=== PATIENT | female | born 1985 | race American Indian/Alaskan Native ===

== ENCOUNTER 2017-05-28 00:07 | Inpatient (IN) | payer MEDICAID, OTHER ==
[~2017-05-28 00:07] MED LIST: Acetaminophen 325 MG Tab PO PRN; Carboprost Tromethamine 250 MCG/1 ML Amp IM PRN; Lactated Ringers 500 ML IV ONE; Lidocaine 1% 30 ML SDV INJECT PRN; Methylergonovine 0.2 MG/1 ML Amp IM PRN; Misoprostol 25 MCG (1/4 of 100 MCG) Tab VAG PRN; Misoprostol 400 MCG (4 X 100 MCG TAB) RECTAL PRN; Nalbuphine 10 MG/1 ML Vial IM PRN; Ondansetron 4 MG/2 ML SDV IV PRN; Oxytocin/Normal Saline 30 UNIT/500 ML BAG IV SCH; Sodium Chloride 0.9% 10 ML Syringe FLUSH PRN; Zolpidem 5 MG Tab PO PRN
[2017-05-28] MEDS: Lactated Ringers 1,000 ML IV SCH ×4 (00:58→19:57)
[2017-05-28] MEDS ORDERED: Oxytocin/Normal Saline 30 UNIT/500 ML BAG IV SCH (08:15)
[2017-05-28] MEDS ORDERED: fentaNYL 100 MCG/2 ML SDV ONE (12:15)
--- NOTE | 2017-05-28 12:38 | PCM.PREANE ---
Preanesthetic Assessment - Procedure Proposed Procedure: Term labor requiring intrathecal for labor pain - Anesthesia/Transfusion/Family Hx Anesthesia History: Prior Anesthesia Without Reaction Type of Anesthesia Reaction: Unknown Family History of Anesthesia Reaction: No Transfusion History: No Prior Transfusion(s) Intubation History: Unknown - Review of Systems General: No Symptoms Pulmonary: No Symptoms Cardiovascular: No Symptoms Gastrointestinal: No Symptoms Neurological: No Symptoms Other: Reports: None - Physical Assessment NPO Status Date: 05/28/17 NPO Status Time: 12:00 Pulse: 93 O2 Sat by Pulse Oximetry: 99 Respiratory Rate: 18 Blood Pressure: 138/72 Vital Signs: Last Vital Signs Temp 97.1 F 05/28/17 08:45 Pulse 67 05/28/17 11:00 Resp 18 05/28/17 11:00 BP 127/63 05/28/17 11:00 Pulse Ox Height: 1.7 m Weight: 117.027 kg ASA Class: 2 Mental Status: Alert & Oriented x3 Airway Class: Mallampati = 2 Dentition: Reports: Normal Dentition Thyro-Mental Finger Breadths: 3 Mouth Opening Finger Breadths: 3 ROM/Head Extension: Full Lungs: Clear to Auscultation, Normal Respiratory Effort Cardiovascular: Regular Rate, Regular Rhythm - Lab Values: Laboratory Last Values Urine Opiates Screen Negative (NEGATIVE) 05/28/17 00:20 Ur Oxycodone Screen Negative (NEGATIVE) 05/28/17 00:20 Urine Methadone Screen Negative (NEGATIVE) 05/28/17 00:20 Ur Barbiturates Screen Negative (NEGATIVE) 05/28/17 00:20 U Tricyclic Antidepress Negative (NEGATIVE) 05/28/17 00:20 Ur Phencyclidine Scrn Negative (NEGATIVE) 05/28/17 00:20 Ur Amphetamine Screen Negative (NEGATIVE) 05/28/17 00:20 U Methamphetamines Scrn Negative (NEGATIVE) 05/28/17 00:20 Urine MDMA Screen Negative (NEGATIVE) 05/28/17 00:20 U Benzodiazepines Scrn Negative (NEGATIVE) 05/28/17 00:20 Urine Cocaine Screen Negative (NEGATIVE) 05/28/17 00:20 U Marijuana (THC) Screen Negative (NEGATIVE) 05/28/17 00:20 - Allergies Allergies/Adverse Reactions: Allergies Allergy/AdvReac Type Severity Reaction Status Date / Time amoxicillin Allergy Hives Verified 05/28/17 00:30 Penicillins Allergy Hives Verified 05/28/17 00:30 - Blood Blood Available: No Product(s) Available: None - Anesthesia Plan Pre-Op Medication Ordered: None - Acknowledgements Anesthesia Type Planned: Spinal Pt an Appropriate Candidate for the Planned Anesthesia: Yes Alternatives and Risks of Anesthesia Discussed w Pt/Guardian: Yes Pt/Guardian Understands and Agrees with Anesthesia Plan: Yes PreAnesthesia Questionnaire Cardiovascular History: Reports: Blood Clots/VTE/DVT Other Cardiovascular History: To left hip following first delivery in 2001 Respiratory History: Reports: Asthma Gastrointestinal History: Reports: Cholelithiasis, Other (See Below) Other Gastrointestinal History: increased LFT's Genitourinary History: Reports: UTI, Recurrent KETTLE GIRL History: Reports: , Other (See Below) Other OB/BYN History: hx yeast infection, bv Psychiatric History: Reports: Depression Hematologic History: Reports: Anemia, Other (See Below) Other Hematologic History: + hep c - Infectious Disease History Infectious Disease History: Reports: Chicken Pox - Past Surgical History Cardiovascular Surgical History: Reports: None GI Surgical History: Reports: None Female Surgical History: Reports: None - SUBSTANCE USE Smoking Status *Q: Former Smoker Tobacco Use Within Last Twelve Months: Cigarettes Second Hand Smoke Exposure: No Recreational Drug Use History: No - HOME MEDS Home Medications: Home Meds Albuterol [Proventil HFA] 2 puff INH Q4H PRN 07/26/16 [History] Albuterol/Ipratropium [DuoNeb 3.0-0.5 MG/3 ML] 3 ml NEB Q2H PRN #0 neb 07/29/16 [Rx] Ferrous Sulfate [Iron] 1 tab PO DAILY 05/26/17 [History] PNV95/Ferrous Fumarate/FA [ Tablet] 1 tab PO DAILY 05/26/17 [History] - CURRENT (IN HOUSE) MEDS Current Meds: Current Medications Acetaminophen (Tylenol) 650 mg PO Q4H PRN PRN Reason: Pain (Mild 1-3) and fever Acetaminophen (Tylenol) 650 mg PO Q4H PRN PRN Reason: Pain/Fever Carboprost Tromethamine (Hemabate Ds) 250 mcg IM ASDIRECTED PRN PRN Reason: HEMORRHAGE Lactated Ringer's (Ringers, Lactated) 1,000 mls @ 125 mls/hr IV ASDIRECTED EZRA Last Admin: 05/28/17 05:29 Dose: 125 mls/hr Oxytocin/Sodium Chloride (Pitocin In Ns 30 Unit/500 Ml) 30 unit in 500 mls @ 2 mls/hr IV TITRATE EZRA; 2 MUNITS/MIN PRN Reason: Protocol Oxytocin/Sodium Chloride (Pitocin In Ns 30 Unit/500 Ml) 30 unit in 500 mls @ 2 mls/hr IV TITRATE EZRA; 2 MUNITS/MIN PRN Reason: Protocol Last Titration: 05/28/17 09:53 Dose: 6 munits/min, 6 mls/hr Vancomycin HCl 1 gm/ Sodium (Chloride) 250 mls @ 166.7 mls/hr IV Q12H EZRA Lidocaine HCl (Xylocaine-Mpf 1%) 10 ml INJECT ASDIRECTED PRN PRN Reason: Perineal Repair Methylergonovine Maleate (Methergine) 0.2 mg IM ASDIRECTED PRN PRN Reason: Hemorrhage Misoprostol (Cytotec) 800 mcg RECTAL ASDIRECTED PRN PRN Reason: Hemorrhage Misoprostol (Cytotec) 25 mcg VAG Q4H PRN PRN Reason: cervical ripening Stop: 05/29/17 04:02 Last Admin: 05/28/17 01:54 Dose: 25 mcg Nalbuphine HCl (Nubain) 20 mg IM ONETIME PRN PRN Reason: Abdominal Pain Ondansetron HCl (Zofran) 4 mg IV Q4H PRN PRN Reason: Nausea/Vomiting Sodium Chloride (Saline Flush) 10 ml FLUSH ASDIRECTED PRN PRN Reason: Keep Vein Open Zolpidem Tartrate (Ambien) 5 mg PO BEDTIME PRN PRN Reason: Insomnia Stop: 05/28/17 21:01 Discontinued Medications Fentanyl (Sublimaze) Confirm Administered Dose 100 mcg .ROUTE .STK-MED ONE Stop: 05/28/17 12:16 Lactated Ringer's (Ringers, Lactated) 500 mls @ 999 mls/hr IV .BOLUS ONE Stop: 05/28/17 00:31 Vancomycin HCl 1 gm/ Sodium (Chloride) 250 mls @ 166.7 mls/hr IV Q12HR EZRA Last Admin: 05/28/17 11:06 Dose: Not Given Sufentanil Citrate (Sufenta) Confirm Administered Dose 50 mcg .ROUTE .STK-MED ONE Stop: 05/28/17 12:17
--- NOTE | 2017-05-28 12:44 | PCM.PRNOTE ---
- Free Text/Narrative Note: Patient Id'd, chart reviewed, consent is signed after R/B benefit of Intrathecal narcotic is discussed with patient and agreed to. In sitting position, L3-4 inner space ID's, sterile prep with Betadine and draped. Skin wheel with 1% lidocaine, 24 G Pencan spinal needle advanced into SA space negative Blood/parasthesia positive CSF X2. 6 mg Hyperbaric Marcaine, 30 mcg sufentanyl, 30 mcg fentanyl, epinepherine wash and 1 ml of preservative free normal saline injected into SA space. Level bilateral T10. Immediate pain relief is achieved. BP 136/75, HR 82, RR 18 SpO2 99 on RA.
--- NOTE | 2017-05-28 14:14 | PN ---
DATE: 05/28/2017 SUBJECTIVE: A 31-year-old, G5, P4-0-0-4 at 39 and 3/7 weeks' gestation, here for induction of labor because of history of macrosomia and multiple other high- risk factors, measuring large for gestational age on clinical exam at this time as well. OBJECTIVE: Vital Signs: Have been good. Blood pressure is 138/73, pulse of 68. She is afebrile. Pitocin has been running, and she also now has an intrathecal in place as her contractions were getting quite strong, and she was starting to breathe through them. As a multiparous patient, we expect that she will progress quickly through labor as her previous labors have only been about 3-1/2 to 4 hours total, and the baby's monitoring strip has been looking excellent with a baseline heart rate of 125 beats per minute, moderate [id number]-gm-kavt variability. Accelerations noted. Contractions currently about 2 to 2-1/2 minutes. Cervix is 3 cm dilated, 80% effaced, anterior but very high. Artificial rupture of membranes performed with copious amounts of clear fluid returned, vertex presenting. ASSESSMENT: Unchanged from prior, now status post ruptured membranes with intrathecal in place. PLAN: Continue pushing the Pitocin as able. Continue with vancomycin. If she is not making adequate cervical change, nurse will notify me, and I will return to place an IUPC. Due to her group B strep positive and hepatitis C history; however, we were trying to limit intracervical and vaginal procedures. [facility] /[id number] DEVORAH
[2017-05-28] MEDS ORDERED: fentaNYL 100 MCG/2 ML SDV ITHECAL ONE (14:27)
[2017-05-28] MEDS ORDERED: Gentamicin 500 MG in Sodium Chloride 0.9% 100 ML IV ONE (19:57)
[2017-05-28] MEDS ORDERED: Citric Acid/Sodium Citrate Solution 30 ML Cup PO ONE (19:57)
[2017-05-28] MEDS ORDERED: Oxytocin/Normal Saline 60 UNIT/1,000 ML BAG ONE (20:06)
[2017-05-28] MEDS ORDERED: Morphine PF 1 MG/ML Amp ONE (20:11)
[2017-05-28] MEDS ORDERED: Midazolam 1 MG/ML 2 ML SDV ONE (20:11)
[2017-05-28] MEDS ORDERED: Ondansetron 4 MG/2 ML SDV ONE ×2 (20:11→21:45)
[2017-05-28] MEDS ORDERED: ePHEDrine 50 MG/ML SDV ONE (20:12)
--- NOTE | 2017-05-28 20:35 | PN ---
DATE: 05/28/2017 SUBJECTIVE: A 31-year-old female, currently at 39 and 3/7 weeks gestation, 5, para 4-0-0-4, with a history of prior macrosomic and feels this baby is larger than any of her priors, was brought in at midnight for induction using Cytotec eventually followed by Pitocin and artificial rupture of membranes. IUPC was also used for labor management and for 4 hours, she has had MVUs of greater than 200 and has not made any cervical dilatation or progression. Baby remains fairly high in the pelvis. Cervix is very anterior and essentially just not engaging. We have tried different position changes. She did have an intrathecal earlier and that did not help with relaxation or further dilatation either. She has a history of abnormal quad screening, increased risk of Down syndrome. Otherwise, no specific risk factors for a larger baby. Discussed with her boyfriend and her brother in the room my suspicion that this baby is very large and this is why we have arrest of dilatation despite her history of fairly fast labors usually under 4 hours and with only 20 to 30 minutes of pushing. After discussion, she was agreeable to proceed with section and agreed that continued efforts for vaginal delivery are essentially futile. OBJECTIVE: Vital Signs: Have been stable. Blood pressure is 124/72, pulse is 67. She is afebrile, respiratory rate of 16. Cervical exam performed per the nurse who had checked her 1 hour previous, reports no further progress. She has arrested at 5 cm dilated, 75% effaced, remains anterior. No significant caput is forming and baby is higher than what we would like to palpate. Fundal height rechecked as 43 cm when measuring from the symphysis pubis despite having at least 500 of clear amniotic fluid out so far. ASSESSMENT: 1. A 39 and 3/7 weeks intrauterine . 2. Arrest of labor at 5 cm of dilatation despite adequate MVUs for 4 hours. 3. 5, para 4-0-0-4. 4. History of macrosomic infant suspect same as reason for rest. 5. History of abnormal quad screen with increased risk of Down syndrome. No followup performed. 6. Hepatitis C positive. 7. Group B strep positive, currently on vancomycin. 8. Rubella immune. 9. Blood type O positive. 10.Penicillin allergy. 11.Anemia of . 12.History of cholelithiasis. 13.Asthma. 14.History of deep venous thrombosis with her first . PLAN: Discussed proceeding to and she is agreeable. Reviewed risk of infection and plan for preoperative antibiotics, risk of bleeding to the point of requiring a blood transfusion; risk of injury to any internal organs and adjacent structures including, but not limited to, uterus, fallopian tubes, ovaries, ureters, bladder, intestines, muscles, large blood vessels, nerves, veins, and any other adjacent structures. The patient was advised that I will have a surgical rn who would be able to correct many of these injuries if they were to occur; however, there is still potential for complications for her or the baby that would require transfer of 1 or both of them to a facility with a higher level of care. Also, remote risk of . She agreed to proceed and we signed appropriate consent forms. Once the team is assembled, we will proceed with a non urgent, nonelective primary low transverse section. [facility] /[id number] MTDD
[2017-05-28] MEDS ORDERED: Carboprost Tromethamine 250 MCG/1 ML Amp ONE (20:55)
[2017-05-28] MEDS ORDERED: Misoprostol 400 MCG (4 X 100 MCG TAB) ONE (20:55)
[2017-05-28] MEDS ORDERED: Ketorolac 30 MG/ML SDV ONE (21:45)
[2017-05-28] MEDS ORDERED: Promethazine 25 MG/ML SDV ONE (21:45)
[2017-05-28] MEDS ORDERED: Acetaminophen/oxyCODONE 325-5 MG Tab PO PRN (23:14)
[2017-05-28] MEDS ORDERED: Naloxone 2 MG/2 ML Syringe IVPUSH PRN (23:14)
[2017-05-28] MEDS ORDERED: Ondansetron 4 MG/2 ML SDV IV PRN (23:14)
[2017-05-28] MEDS ORDERED: ePHEDrine 50 MG/ML SDV IVPUSH PRN (23:14)
[2017-05-28] MEDS ORDERED: Ibuprofen 800 MG Tab PO PRN (23:14)
[2017-05-28] MEDS ORDERED: Methylergonovine 0.2 MG/1 ML Amp IM PRN (23:14)
[2017-05-28] MEDS ORDERED: Misoprostol 400 MCG (4 X 100 MCG TAB) RECTAL PRN (23:14)
[2017-05-28] MEDS ORDERED: diphenhydrAMINE 50 MG/ML SDV IVPUSH PRN (23:14)
[2017-05-28] MEDS ORDERED: Carboprost Tromethamine 250 MCG/1 ML Amp IM ONE (23:14)
[2017-05-28] MEDS ORDERED: Acetaminophen 325 MG Tab PO PRN (23:14)
--- NOTE | 2017-05-29 01:23 | OR ---
DATE: 05/28/2017 ATTENDING SURGEON: Jeannie Medellin MD POWERHOUSE ATTENDANT SURGEONS: 1. Mt Maher MD, PGY-III. 2. Kathy García MD. PREOPERATIVE DIAGNOSES: 1. 5, para 4-0-0-4 at 39 weeks 3 days gestation. 2. History of macrosomia. 3. Abnormal quad screen. 4. History of insufficient care. 5. History of bacterial vaginosis, urinary tract infection, and yeast infection all and during . 6. Hepatitis C virus positive. 7. O positive, rubella immune, and group B Streptococcus positive, being treated with vancomycin. 8. Penicillin allergy. 9. Anemia. 10.Cholelithiasis. 11.History of asthma. 12.History of deep venous thrombosis. 13.Arrest of labor. POSTOPERATIVE DIAGNOSES: 1. 5, para 5-0-0-5 at 39 weeks 3 days gestation. 2. History of macrosomia. 3. Abnormal quad screen. 4. History of insufficient care. 5. History of bacterial vaginosis, urinary tract infection, and yeast infection all and during . 6. Hepatitis C virus positive. 7. O positive, rubella immune, and group B Streptococcus positive, being treated with vancomycin. 8. Penicillin allergy. 9. Anemia. 10.Cholelithiasis. 11.History of asthma. 12.History of deep venous thrombosis. 13.Arrest of labor. 14.Delivery of viable female infant with scores of 8 and 9 at 1 and 5 minutes respectively. OPERATIVE PROCEDURE: Primary nonelective, non-repeat low transverse section. ESTIMATED BLOOD LOSS: 600 mL. URINE OUTPUT: 450 mL. IV FLUIDS: 1300 mL in the OR. FINDINGS: Nonemergent primary, non-repeat low transverse section at 39 weeks 3 days with arrest of labor at 5 cm, with delivery of a female infant with scores of 8 and 9. Start time was 2053 hours; uterine time was 2101 hours; time was 2102 hours; and end time was 2127 hours. INDICATION FOR PROCEDURE: Tisha Cowan is a G5, P4-0-0-4, who presented for induction of labor due to history of macrosomia and insufficient care with a significant history as listed above and history of DVT, who had arrest of labor after 4 hours sufficient MVUs. She failed at 5 cm to progress over the course of 4 hours. Risks and benefits were discussed with the patient by Dr. Jimenez, and the patient wished to proceed with surgery at that time. PROCEDURE IN DETAIL: The patient was brought to the operating room, given spinal anesthetic, and placed supine with a bump under the right hip. A Mcmanus catheter was placed. She was prepped and draped in standard sterile fashion. A procedural time-out was performed, and all were in agreement. A Pfannenstiel incision was made with a scalpel, and electrocautery was used to dissect down through the subcutaneous tissue to the muscle fascia. The muscle fascia was scored and opened transversely with tilting cephalic towards the edges to avoid epigastric vessels. The fascia was raised superiorly and inferiorly down to the pubic bone. The rectus muscles were bluntly and entered into the peritoneum bluntly. The uterus was normal appearing. A bladder flap was created using Metzenbaum scissors. This was retracted out of the way. An Woody retractor was placed. A low transverse uterine incision was made sharply, and then bluntly entering into the uterine cavity, this was then opened bluntly. With the presenting lateral portion of the head towards the cervix, the was then delivered out, and the cord was doubly clamped and cut. There was some bleeding noted from the uterine edges and Penningtons were placed to avoid hemorrhage. The baby was taken to the warmer under the care of Dr. García. The placenta was delivered without issue. There was minimal retained placenta that was removed with ring forceps and debridement using a lap sponge. Fundal massage was created, and uterine tone was present. The uterus was closed with a #1 running locking Vicryl stitch. A horizontal imbricating stitch was then placed with a #1 Vicryl. There was no bleeding noticed, following the Woody retractor was removed. The paracolic gutters were without issues. 2-0 Vicryl [id number] stitches were used to reapproximate the peritoneum. The fascia was closed with 2-0 looped PDS running starting from the edges meeting in the middle and tying. Subcutaneous tissues were irrigated thoroughly. Hemostasis was reassured. Skin was staple closed, and sterile dressings were placed. The patient was then transferred to PACU in stable condition. Dr. Jeannie Medellin was present and scrubbed for this entire procedure. [facility] /[id number] Procedure performed under my direct supervision and I agree with the note as scribed on my behalf by Dr. Figueroa. -[facility] 06/21/17 0934. MTDD
[2017-05-29] MEDS: Lactated Ringers 1,000 ML IV SCH ×2 (01:48→09:44)
[2017-05-29] MEDS: Ketorolac 30 MG/ML SDV IVPUSH SCH ×3 (04:10→15:57)
[2017-05-29] MEDS: Enoxaparin 40 MG/0.4 ML Syringe SUBCUT SCH (09:07)
[2017-05-29] MEDS: Simethicone 80 MG Tab.Chew PO PRN ×2 (09:07→20:40)
[2017-05-29] MEDS: Docusate Sodium 100 MG Cap PO PRN ×2 (09:08→20:39)
--- NOTE | 2017-05-29 10:06 | PN ---
DATE: 05/29/2017 SUBJECTIVE: Postoperative day #1, overall doing well. She has not been up to ambulate yet. Continues to have Mcmanus catheter in place. Reports that she feels a little bit of tightness sensation in her chest. No other chest discomfort or pain. Denies specific difficulty breathing. Abdominal pain is well controlled. Generally concerned about how things are going to go postoperatively. Reports is going well. No other acute concerns. OBJECTIVE: General: A pleasant healthy-appearing 31-year-old female. Vital Signs: Temperature is 98.2, pulse 72, blood pressure 120/61, respiratory rate of 16, O2 saturations 97% on room air. Heart: Regular without obvious murmur. Lungs: Clear to auscultation bilaterally. Abdomen: Soft without masses. Uterus is firm and below the umbilicus. Dressing is clean, dry, and intact. Extremities: SCDs and SAIDA hose are on. No obvious edema. No tenderness to palpation. LABORATORY DATA: Hemoglobin is down to 10.3 from a previous 12.2 and platelets are stable at 221. ASSESSMENT: 1. Postoperative day #1, status post primary low transverse section. 2. 5, now para 5-0-0-5. 3. Anemia of and acute blood loss. 4. Hepatitis C positive. Current viral load and genotype pending. 5. Blood type O positive. Rubella immune. 6. Penicillin allergy. PLAN: Continue routine postoperative cares. Anticipate discharge home on postop day #3. Discussed getting a shower after 24 hours postop once she is up and ambulating. Remove Mcmanus catheter later on this evening. Lovenox has been initiated and we will continue until discharge because of her history of left hip DVT. [facility] /[id number]
--- NOTE | 2017-05-29 10:42 | PCM.POSTAN ---
[id number] Pulse Rate: 72 SaO2: 99 Resp Rate: 18 Blood Pressure: 132/72 Temperature: 97.6 F - RESPIRATORY Respiratory Status: Respiratory Rate WNL, Airway Patent, O2 Saturation Stable - CARDIOVASCULAR CV Status: Pulse Rate WNL, Blood Pressure Stable - GASTROINTESTINAL GI Status: No Symptoms Free Text/Narrative:: Had couple of nausea events post operatively. This morning she tolerated food and fluid well. No further complains of nausea - PAIN Pain Score: 0 - POST OP HYDRATION Hydration Status: Adequate & Stable - OBSERVATIONS Free Text/Narrative:: Sitting in bed fully recovered from her ITN. Did not ambulate yet. Tolerated breakfast well. Pleased with her anesthesia plan of care.
[2017-05-29] MEDS: Prenatal Multivitamin with Calcium/Folic Acid/Iron Tab PO SCH (12:33)
[2017-05-29] MEDS ORDERED: Ketorolac 30 MG/ML SDV IVPUSH ONE (12:39)
[2017-05-29] MEDS ORDERED: Ondansetron 4 MG/2 ML SDV IV ONE (12:39)
[2017-05-29] MEDS ORDERED: Morphine PF 1 MG/ML Amp ONE (12:39)
[2017-05-29] MEDS ORDERED: Promethazine 25 MG/ML SDV IV ONE (12:39)
[2017-05-29] MEDS ORDERED: Midazolam 1 MG/ML 2 ML SDV IV ONE (12:39)
[2017-05-29] MEDS ORDERED: ePHEDrine 50 MG/ML SDV IV ONE (12:39)
[2017-05-29] MEDS ORDERED: Albuterol 0.083% 2.5 MG/3 ML Neb Soln NEB PRN (20:07)
[2017-05-29] MEDS: Albuterol/Ipratropium 3.0-0.5 MG/3 ML Neb Soln NEB SCH (20:24)
[2017-05-29] MEDS: Acetaminophen/oxyCODONE 325-5 MG Tab PO PRN (20:40)
[2017-05-29] MEDS: Ibuprofen 800 MG Tab PO PRN (23:57)
[2017-05-30] MEDS: Acetaminophen/oxyCODONE 325-5 MG Tab PO PRN ×5 (03:17→21:20)
[2017-05-30] MEDS ORDERED: Oxytocin/Normal Saline 30 UNIT/500 ML BAG IV ONE (06:29)
--- NOTE | 2017-05-30 07:27 | PN ---
DATE: 05/30/2017 SUBJECTIVE: Postoperative day #2, status post primary section for asynclitic presentation. She is a 5, now para 5-0-0-5. Reports that she has been ambulating without difficulties. Mcmanus catheter has remained in place, passing flatus, has not yet had a bowel movement, tolerating regular diet. Denies any chest pain or typical shortness of breath. She has had some exacerbation of her asthma last night, which responded well to DuoNeb, and she has not needed any p.r.n. albuterol nebulizers. Denies any breathing difficulties this morning. Vaginal bleeding has slowed significantly. She continues to breastfeed and feels that her milk has come in. Otherwise, no new concerns or complaints. PHYSICAL EXAMINATION: VITAL SIGNS: Temperature is 97.2 pulse 67, blood pressure 118/67, respiratory rate of 18, and O2 saturations 97% on room air. HEART: Regular without obvious murmur. LUNGS: Clear to auscultation at this time. Last night nurse reported wheezing in the left lung field. ABDOMEN: Soft. Fundus is firm and below the umbilicus. Dressing is in place. It is clean, dry, and intact. No obvious strike through. EXTREMITIES: No edema or tenderness noted. She does have her SAIDA hose on and reports she is ambulating frequently. LABORATORY DATA: Hemoglobin was down to 10.3 from a preop of 12.2, was not reordered to be rechecked today. ASSESSMENT: 1. Postoperative day #2, status post primary section. 2. History of deep venous thrombosis in the left hip with her first . 3. 5, now para 5-0-0-5. 4. False positive antibody screen for hepatitis C. 5. Other diagnoses per admission history and physical and postoperative and operative report. PLAN: Continue routine postoperative cares. Anticipate discharge home tomorrow. Remove the SCDs today. Continue Lovenox through discharge, but she does not need to go home on it. Continue to encourage frequent ambulation. Pinole to be removed in 10 days after discharge when she brings the baby in for the 2-week well-child visit. Dr. Rubi will cover over the weekend in my absence. [facility] /[id number]
[2017-05-30] MEDS: Albuterol/Ipratropium 3.0-0.5 MG/3 ML Neb Soln NEB SCH ×2 (09:07→18:17)
[2017-05-30] MEDS: Enoxaparin 40 MG/0.4 ML Syringe SUBCUT SCH (09:31)
[2017-05-30] MEDS: Ferrous Sulfate 325 MG Tab PO SCH ×2 (09:31→17:08)
[2017-05-30] MEDS: Prenatal Multivitamin with Calcium/Folic Acid/Iron Tab PO SCH (09:31)
[2017-05-30] MEDS: Ibuprofen 800 MG Tab PO PRN ×2 (09:32→17:08)
[2017-05-30] MEDS: Docusate Sodium 100 MG Cap PO PRN ×2 (09:32→21:20)
[2017-05-30] MEDS: Simethicone 80 MG Tab.Chew PO PRN ×2 (09:32→21:18)
[2017-05-31] MEDS: Ibuprofen 800 MG Tab PO PRN (01:31)
[2017-05-31] MEDS: Acetaminophen/oxyCODONE 325-5 MG Tab PO PRN ×3 (01:32→10:50)
[2017-05-31] MEDS: Ferrous Sulfate 325 MG Tab PO SCH (07:12)
[2017-05-31] MEDS: Prenatal Multivitamin with Calcium/Folic Acid/Iron Tab PO SCH (07:12)
[2017-05-31] MEDS: Albuterol/Ipratropium 3.0-0.5 MG/3 ML Neb Soln NEB SCH (07:12)
[2017-05-31 07:35] VITALS: BP 123/80
[2017-05-31] MEDS: Enoxaparin 40 MG/0.4 ML Syringe SUBCUT SCH (09:40)
[2017-05-31] MEDS: Docusate Sodium 100 MG Cap PO PRN (09:41)
--- NOTE | 2017-06-01 14:14 | DISCH ---
HISTORY OF PRESENT ILLNESS: This patient is a 31-year-old 5, now para 5 patient, who has been followed by myself as well as by Dr. Jimenez during this . Prenatally, some of her care was somewhat sparse at times. One of her SARIAH is based on an earlier ultrasound and her LMP from [place] gives her an SARIAH of June 03. The patient was felt to be at 39 weeks 3 days gestation. During this course, her initial rubella titer was equivocal, but repeat testing intrapartum and revealed her to be immune to rubella. She also did have a positive quad screen prenatally, but she never did keep her appointment with the maternal medicine specialist in [place] for further evaluation. She also initially had a high titer of hepatitis C reported. Followup testing by Dr. Jimenez, which consisted of the quantitative testing and genotype testing, revealed undetectable antibody. She also has had iron-deficiency anemia with this and was on oral iron. She does have a history of asthma, which most of the time has been stable, but more recently, she did have a slight increase in her wheezing. She also has past history of having had a macrosomic 9 pounds 8 ounce baby delivered vaginally in 2001. The patient has recently been measuring 41 cm fundal height, and there has been concern for possible macrosomia again. HOSPITAL COURSE: The patient was thoroughly evaluated by Dr. Jimenez and induction of labor was commenced on May 28 when the patient was at 39 weeks 3 days gestation. Cytotec was utilized initially and then IV Pitocin was later used as well as artificial rupture of membranes. The patient did have an arrest of labor or failure to progress in labor. Please see the dictated admission history and physical as well as dictated operative report of Dr. Jimenez. It should be mentioned that this patient also had a history of a left hip DVT in about 2001 and the patient did have Lovenox given while she was hospitalized and then it was discontinued at discharge. Because of her arrest of labor or failure to progress in labor, the patient was taken to the operating room for a primary section, low transverse. She did have a viable baby girl, who had scores of 8 and 9 and the weight was reported as 7 pounds 7 ounces. There were no intraoperative nor postoperative complications. The baby has continued to do well in the period as well. The patient is breast feeding and breast feeding is well established. The patient has been ambulating appropriately and tolerating diet and having no bowel or bladder problems. I did see the patient on rounds on Friday morning 05/31/2017. The patient remains afebrile at that time. Her extremities reveal 1+ ankle and calf edema, and the patient states that this has been stable for her. There is negative Homans sign and no calf tenderness to palpation. As mentioned above, the patient has been ambulating appropriately. The patient is discharged on 05/31/2017. She will avoid any heavy lifting, sexual intercourse, or strenuous physical activity for approximately 6 weeks. She does have a followup appointment to see Dr. Jimenez in approximately 10 to 14 days and the baby I understand will be seen. Dr. Jimenez is coming week in the clinic. The patient's diet is regular. Her discharge hemoglobin is 10.3. DISCHARGE MEDICATIONS: Consist of Percocet 5/325 mg one p.o. q.6 hours p.r.n. #30, prescribed by Dr. Jimenez. Also, the patient was given a prescription for Colace, ibuprofen, vitamins, and oral iron. OTHER INSTRUCTIONS: The patient was instructed to please call us at once if any fever, excessive bleeding, excess pain, including any pelvic pain, vaginal pain, extremity pain, or chest pain etc. She was also instructed to do progressive ambulation at home. FINAL DIAGNOSES: 1. Term delivered. 2. Past history of macrosomia. 3. Abnormal quad screen prenatally with normal delivered. 4. Group B strep positive, treated with vancomycin. 5. Anemia of . 6. Asthma. 7. History of previous deep venous thrombosis. 8. Arrest of labor or failure to progress in labor. OPERATIONS AND PROCEDURES: Primary section, low transverse on 05/28/2017. It should be mentioned that the hepatitis C virus quantitative testing and genotype testing does not reveal any detectable antibody for hepatitis C at present. [facility] /[id number]
== END 2017-05-31 12:00 | disposition still patient (30) | DRG 765 ==
LOC: DL.OBCHECK 00:07 → DL.OB 00:10 → OBSVTOIN 21:02 → EEVIPCON 21:02
PROVIDERS: ADMIT Family Medicine; ATTEND Family Medicine
PROC: 10D00Z1 Extraction of Products of Conception, Low, Open Approach (ICD-10-PCS; principal; 2017-05-28)
PROC: 10907ZC Drainage of Amniotic Fluid, Therapeutic from Products of Conception, Via Natural or Artificial Opening (ICD-10-PCS; 2017-05-28)
PROC: 3E033VJ Introduction of Other Hormone into Peripheral Vein, Percutaneous Approach (ICD-10-PCS; 2017-05-28)
PROC: 3E0P7GC Introduction of Other Therapeutic Substance into Female Reproductive, Via Natural or Artificial Opening (ICD-10-PCS; 2017-05-28)
PROC: 4A1HXCZ Monitoring of Products of Conception, Cardiac Rate, External Approach (ICD-10-PCS; 2017-05-28)
PROC: 10H07YZ Insertion of Other Device into Products of Conception, Via Natural or Artificial Opening (ICD-10-PCS; 2017-05-28)
DX: O61.0 Failed medical induction of labor (principal); J45.901 Unspecified asthma with (acute) exacerbation; O62.1 Secondary uterine inertia; O99.02 Anemia complicating childbirth; O99.824 Streptococcus B carrier state complicating childbirth; D50.9 Iron deficiency anemia, unspecified; O99.52 Diseases of the respiratory system complicating childbirth; Z3A.39 39 weeks gestation of pregnancy; Z86.718 Personal history of other venous thrombosis and embolism; Z37.0 Single live birth
CPT/HCPCS: 01961; 01967; 36415; 80305; 85025; 85027; 86850; 86900; 86901; 94010; 94640; A9270-GY; J1580; J1650; J1885; J2250; J2274; J2405; J2550; J2590; J3010; J3370; J7050; J7120

== ENCOUNTER 2017-06-05 11:45 | Emergency (ER) | payer MEDICAID, OTHER ==
--- NOTE | 2017-06-05 12:09 | EDM.PDOC ---
ED HPI GENERAL MEDICAL PROBLEM - General Stated Complaint: ABD PAIN/FEVER Time Seen by Provider: 06/05/17 11:45 Source of Information: Reports: Patient, EMS, Provider History Limitations: Reports: No Limitations - History of Present Illness INITIAL COMMENTS - FREE TEXT/NARRATIVE: This 31 yo female patient was sent to the ED by [facility] from the [facility] due to lower abdominal pain and a fever. The provider in the clinic ordered Tylenol (PO) and an IV for the patient. The patient reports she has had increased lower abdominal pain over the past 2 days. The patient reports she has not called or set up an appointment with Dr. Jimenez. The patient reports she took her last Percocet last night. The patient had a on 05/28/17 at [facility] in [place]. The patient reports she has been doing well up to the past 2 days. The patient has also been having a cough. The patient reports no drainage or discharge from the site. The patient has been having a cough over the past couple of days. The patient reports her child is doing well. Onset: Gradual Onset Date: 06/03/17 Duration: Constant, Getting Worse Location: Reports: Chest, Abdomen Quality: Reports: Ache, Sharp Severity: Severe Improves with: Reports: Medication (Percocet) Worsens with: Reports: Movement Context: Reports: Other () Treatments ENTERPRISE ENGINEER: Reports: Acetaminophen (3x325 (PO) from [facility]) - Related Data Allergies Allergy/AdvReac Type Severity Reaction Status Date / Time amoxicillin Allergy Hives Verified 05/28/17 00:30 Penicillins Allergy Hives Verified 05/28/17 00:30 Home Meds: Home Meds Albuterol [Proventil HFA] 2 puff INH Q4H PRN 07/26/16 [History] Albuterol/Ipratropium [DuoNeb 3.0-0.5 MG/3 ML] 3 ml NEB Q2H PRN #0 neb 07/29/16 [Rx] Ferrous Sulfate [Iron] 1 tab PO DAILY 05/26/17 [History] PNV95/Ferrous Fumarate/FA [ Tablet] 1 tab PO DAILY 05/26/17 [History] Acetaminophen 3 tab PO ASDIRECTED PRN 06/05/17 [History] Past Medical History Cardiovascular History: Reports: Blood Clots/VTE/DVT Other Cardiovascular History: To left hip following first delivery in 2001 Respiratory History: Reports: Asthma Gastrointestinal History: Reports: Cholelithiasis, Other (See Below) Other Gastrointestinal History: increased LFT's Genitourinary History: Reports: UTI, Recurrent VISION MIXER History: Reports: , Other (See Below) Other OB/BYN History: hx yeast infection, bv Psychiatric History: Reports: Depression Hematologic History: Reports: Anemia, Other (See Below) Other Hematologic History: + hep c - Infectious Disease History Infectious Disease History: Reports: Chicken Pox - Past Surgical History Cardiovascular Surgical History: Reports: None GI Surgical History: Reports: None Female Surgical History: Reports: None Social & Family History - Family History Family Medical History: Noncontributory Respiratory: Reports: Asthma Endocrine/Metabolic: Reports: Diabetes, type II - Tobacco Use Smoking Status *Q: Former Smoker Years of Tobacco use: 2 Packs/Tins Daily: 0.3 Used Tobacco, but Quit: Yes Month Tobacco Last Used: 08/2016 Second Hand Smoke Exposure: No - Caffeine Use Caffeine Use: Reports: Coffee - Recreational Drug Use Recreational Drug Use: No - Sexual History Sexual History: Reports: Sexually Active - Living Situation & Occupation Living situation: Reports: with Family Occupation: Employed ED ROS GENERAL - Review of Systems Review Of Systems: ROS reveals no pertinent complaints other than HPI. ED EXAM, GI/ABD - Physical Exam Exam: See Below Exam Limited By: No Limitations General Appearance: Alert, WD/WN, Moderate Distress, Obese Eyes: Bilateral: Normal Appearance, EOMI Ears: Normal External Exam, Normal Canal, Hearing Grossly Normal, Normal TMs Nose: Normal Inspection, Normal Mucosa, No Blood Throat/Mouth: Normal Inspection, Normal Lips, Normal Teeth, Normal Gums, Normal Oropharynx, Normal Voice, No Airway Compromise Head: Atraumatic, Normocephalic Neck: Normal Inspection, Supple, Non-Tender, Full Range of Motion Respiratory/Chest: No Respiratory Distress, Normal Breath Sounds, No Accessory Muscle Use, Chest Non-Tender, Rhonchi Cardiovascular: Normal Peripheral Pulses, Regular Rate, Rhythm, No Edema, No Gallop, No JVD, No Murmur, No Rub GI/Abdominal Exam: Normal Bowel Sounds, Soft, No Organomegaly, No Distention, No Abnormal Bruit, No Mass, Pelvis Stable, Tender (lower abdomen (over surgical scar)), Other (obese) (Female) Exam: Deferred Rectal (Female) Exam: Deferred Back Exam: Normal Inspection Extremities: Normal Inspection, Normal Range of Motion, Non-Tender, Normal Capillary Refill, No Pedal Edema Neurological: Alert, Oriented, CN II-XII Intact, Normal Cognition, Normal Gait, Normal Reflexes, No Motor/Sensory Deficits Psychiatric: Normal Affect, Normal Mood Skin Exam: Dry, Intact, Normal Color, No Rash, Increased Warmth Lymphatic: No Adenopathy Course - Vital Signs Last Recorded V/S: Last Vital Signs Temp 37.7 C 06/05/17 11:47 Pulse 103 H 06/05/17 11:47 Resp 20 06/05/17 11:47 BP 125/58 L 06/05/17 11:47 Pulse Ox 95 06/05/17 11:47 - Orders/Labs/Meds Orders: Active Orders 24 hr Category Date Time Status Pelvis Non OB Ltd [US] Urgent Exams 06/05/17 15:14 Taken Transvaginal Non OB [US] Urgent Exams 06/05/17 15:14 Taken CULTURE BLOOD [BC] Stat Lab 06/05/17 12:09 Received CULTURE BLOOD [BC] Stat Lab 06/05/17 12:12 Received Blood Culture x2 Reflex Set [OM.PC] Stat Oth 06/05/17 11:56 Ordered Labs: Laboratory Tests 06/05/17 06/05/17 06/05/17 Range/Units 12:12 12:12 12:12 WBC 12.4 H (5.0-10.0) 10^3/uL RBC 4.60 (4.2-5.4) 10^6/uL Hgb 13.2 (12.0-16.0) g/dL Hct 39.4 (37.0-47.0) % MCV 85.7 (80-100) fL MCH 28.7 (27.0-34.0) pg MCHC 33.5 (33.0-35.0) g/dL Plt Count 382 (150-450) 10^3/uL Neut % (Auto) 86.3 H (42.2-75.2) % Lymph % (Auto) 5.6 L (20.5-50.1) % Luna % (Auto) 5.6 (2-8) % Eos % (Auto) 2.4 (1.0-3.0) % Baso % (Auto) 0.1 (0.0-1.0) % Add Manual Diff Yes Neutrophils % (Manual) 86 % Band Neutrophils % 1 % Lymphocytes % (Manual) 6 % Atypical Lymphs % 2 % Monocytes % (Manual) 3 % Eosinophils % (Manual) 2 % Sodium 138 (135-145) mmol/L Potassium 4.1 (3.6-5.0) mmol/L Chloride 104 (101-111) mmol/L Carbon Dioxide 21.0 (21.0-31.0) mmol/L Anion Gap 17.1 BUN 13 (7-18) mg/dL Creatinine 0.7 (0.6-1.3) mg/dL Est Cr Clr Drug Dosing 113.24 mL/min Estimated GFR (MDRD) > 60 BUN/Creatinine Ratio 18.57 Glucose 98 (74-105) mg/dL Lactic Acid 0.9 (0.5-2.2) mmol/L Calcium 9.2 (8.4-10.2) mg/dl Total Bilirubin 0.7 (0.2-1.0) mg/dL AST 31 (10-42) IU/L ALT 29 (10-60) IU/L Alkaline Phosphatase 92 (42-121) IU/L Total Protein 7.7 (6.7-8.2) g/dl Albumin 3.5 (3.2-5.5) g/dl Globulin 4.2 Albumin/Globulin Ratio 0.83 Amylase 36 (28-100) U/L Lipase 10 L (22-51) U/L Urine Color (YELLOW) Urine Appearance (CLEAR) Urine pH (5.0-9.0) Ur Specific [place] (1.005-1.030) Urine Protein (NEGATIVE) Urine Glucose (UA) (NEGATIVE) Urine Ketones (NEGATIVE) Urine Occult Blood (NEGATIVE) Urine Nitrite (NEGATIVE) Urine Bilirubin (NEGATIVE) Urine Urobilinogen (0.2-1.0) mg/dL Ur Leukocyte Esterase (NEGATIVE) Urine RBC /HPF Urine WBC (0-5/HPF) /HPF Ur Epithelial Cells /HPF Amorphous Sediment (0/HPF) /HPF Urine Bacteria (0-FEW/HPF) /HPF Urine Mucus /LPF Urine Opiates Screen (NEGATIVE) Ur Oxycodone Screen (NEGATIVE) Urine Methadone Screen (NEGATIVE) Ur Barbiturates Screen (NEGATIVE) U Tricyclic Antidepress (NEGATIVE) Ur Phencyclidine Scrn (NEGATIVE) Ur Amphetamine Screen (NEGATIVE) U Methamphetamines Scrn (NEGATIVE) Urine MDMA Screen (NEGATIVE) U Benzodiazepines Scrn (NEGATIVE) Urine Cocaine Screen (NEGATIVE) U Marijuana (THC) Screen (NEGATIVE) 06/05/17 06/05/17 Range/Units 12:25 12:25 WBC (5.0-10.0) 10^3/uL RBC (4.2-5.4) 10^6/uL Hgb (12.0-16.0) g/dL Hct (37.0-47.0) % MCV (80-100) fL MCH (27.0-34.0) pg MCHC (33.0-35.0) g/dL Plt Count (150-450) 10^3/uL Neut % (Auto) (42.2-75.2) % Lymph % (Auto) (20.5-50.1) % Luna % (Auto) (2-8) % Eos % (Auto) (1.0-3.0) % Baso % (Auto) (0.0-1.0) % Add Manual Diff Neutrophils % (Manual) % Band Neutrophils % % Lymphocytes % (Manual) % Atypical Lymphs % % Monocytes % (Manual) % Eosinophils % (Manual) % Sodium (135-145) mmol/L Potassium (3.6-5.0) mmol/L Chloride (101-111) mmol/L Carbon Dioxide (21.0-31.0) mmol/L Anion Gap BUN (7-18) mg/dL Creatinine (0.6-1.3) mg/dL Est Cr Clr Drug Dosing mL/min Estimated GFR (MDRD) BUN/Creatinine Ratio Glucose (74-105) mg/dL Lactic Acid (0.5-2.2) mmol/L Calcium (8.4-10.2) mg/dl Total Bilirubin (0.2-1.0) mg/dL AST (10-42) IU/L ALT (10-60) IU/L Alkaline Phosphatase (42-121) IU/L Total Protein (6.7-8.2) g/dl Albumin (3.2-5.5) g/dl Globulin Albumin/Globulin Ratio Amylase (28-100) U/L Lipase (22-51) U/L Urine Color Yellow (YELLOW) Urine Appearance Clear (CLEAR) Urine pH 7.0 (5.0-9.0) Ur Specific [place] 1.010 (1.005-1.030) Urine Protein Negative (NEGATIVE) Urine Glucose (UA) Negative (NEGATIVE) Urine Ketones Negative (NEGATIVE) Urine Occult Blood Moderate H (NEGATIVE) Urine Nitrite Negative (NEGATIVE) Urine Bilirubin Negative (NEGATIVE) Urine Urobilinogen 0.2 (0.2-1.0) mg/dL Ur Leukocyte Esterase Small H (NEGATIVE) Urine RBC 5-10 H /HPF Urine WBC 0-5 (0-5/HPF) /HPF Ur Epithelial Cells Occasional /HPF Amorphous Sediment Not seen (0/HPF) /HPF Urine Bacteria Few (0-FEW/HPF) /HPF Urine Mucus Not seen /LPF Urine Opiates Screen Negative (NEGATIVE) Ur Oxycodone Screen Positive H (NEGATIVE) Urine Methadone Screen Negative (NEGATIVE) Ur Barbiturates Screen Negative (NEGATIVE) U Tricyclic Antidepress Negative (NEGATIVE) Ur Phencyclidine Scrn Negative (NEGATIVE) Ur Amphetamine Screen Negative (NEGATIVE) U Methamphetamines Scrn Negative (NEGATIVE) Urine MDMA Screen Negative (NEGATIVE) U Benzodiazepines Scrn Negative (NEGATIVE) Urine Cocaine Screen Negative (NEGATIVE) U Marijuana (THC) Screen Negative (NEGATIVE) Meds: Medications Discontinued Medications Generic Name Dose Route Start Last Admin Trade Name Elisabeth PRN Reason Stop Dose Admin Iopamidol 100 ml 06/05/17 13:37 06/05/17 14:00 Isovue-300 (61%) IVPUSH 06/05/17 13:38 100 ml ONETIME ONE Administration - Re-Assessments/Exams Free Text/Narrative Re-Assessment/Exam: 06/05/17 16:44 Discussed the examination, history, vitals, lab, x-ray, CT and ultrasound results with Dr. Jimenez. Dr. Jimenez agreed with the treatment course as well as follow-up with the patient in the morning if the patient calls the clinic. Departure - Departure Time of Disposition: 16:46 Disposition: Home, Self-Care 01 Condition: Fair Clinical Impression: Postoperative abdominal pain - Discharge Information Instructions: Abdominal Pain, Adult, Hkus-[id number] Care Plan Goals: The patient was advised of the examination, lab, CT, x-ray and ultrasound results during the visit. The patient was given an oral dose of Percocet while in the ED. The patient was discharged with a script for Carlyle () #10 to take 1 by mouth every 6 hours as needed. If the patient has any additional symptoms or concerns, the patient should follow-up with her primary care facility or return to the emergency department. - My Orders Last 24 Hours: My Active Orders 06/05/17 11:56 Blood Culture x2 Reflex Set [OM.PC] Stat 06/05/17 12:09 CULTURE BLOOD [BC] Stat 06/05/17 12:12 CULTURE BLOOD [BC] Stat 06/05/17 15:14 Pelvis Non OB Ltd [US] Urgent Transvaginal Non OB [US] Urgent - Assessment/Plan Last 24 Hours: My Active Orders 06/05/17 11:56 Blood Culture x2 Reflex Set [OM.PC] Stat 06/05/17 12:09 CULTURE BLOOD [BC] Stat 06/05/17 12:12 CULTURE BLOOD [BC] Stat 06/05/17 15:14 Pelvis Non OB Ltd [US] Urgent Transvaginal Non OB [US] Urgent
[2017-06-05 12:38] LABS: CHLORIDE,CL 104 mmol/L (101-111); SODIUM,NA 138 mmol/L (135-145)
[2017-06-05] MEDS ORDERED: Iopamidol 612 MG/ML 100 ML Bottle IVPUSH ONE (13:37)
[2017-06-05] MEDS ORDERED: Acetaminophen/oxyCODONE 325-5 MG Tab PO ONE (16:44)
[2017-06-05 17:25] VITALS: BP 123/90
== END 2017-06-05 17:38 | disposition home or self-care (01) ==
LOC: DL.ED 11:45
DX: O90.89 Other complications of the puerperium, not elsewhere classified (principal); R10.30 Lower abdominal pain, unspecified; J45.909 Unspecified asthma, uncomplicated; D64.9 Anemia, unspecified; Z88.0 Allergy status to penicillin; Z88.1 Allergy status to other antibiotic agents; Z79.899 Other long term (current) drug therapy; Z87.440 Personal history of urinary (tract) infections; Z87.891 Personal history of nicotine dependence
CPT/HCPCS: 36415; 71020; 74177; 76830; 76857; 80053; 80305; 81001; 82150; 83605; 83690; 85025; 87040; 99285; A9270; Q9967; 99284

== ENCOUNTER 2018-04-27 05:49 | Inpatient (IN) | payer MEDICAID, OTHER ==
[2018-04-27] MEDS ORDERED: Tranexamic Acid 1,000 MG in Sodium Chloride 0.9% 100 ML IV PRN (05:58)
[2018-04-27] MEDS ORDERED: Citric Acid/Sodium Citrate Solution 30 ML Cup PO ONE (05:58)
[2018-04-27] MEDS ORDERED: Sodium Chloride 0.9% 10 ML Syringe FLUSH PRN (05:58)
[2018-04-27] MEDS ORDERED: Gentamicin 460 MG in Sodium Chloride 0.9% 100 ML IV ONE (05:58)
[2018-04-27] MEDS ORDERED: Lactated Ringers 1,000 ML IV SCH (06:00)
[2018-04-27] MEDS ORDERED: Lactated Ringers 1,000 ML IV ONE (06:00)
[2018-04-27] MEDS ORDERED: Clindamycin Phosphate 900 MG in Sodium Chloride 0.9% 100 ML IV ONE (06:05)
[2018-04-27] MEDS ORDERED: Oxytocin/Normal Saline 30 UNIT/500 ML BAG IV SCH (06:30)
[2018-04-27] MEDS: Lactated Ringers 1,000 ML IV SCH ×4 (06:50→20:01)
[2018-04-27] MEDS ORDERED: Clindamycin Phosphate 900 MG/6 ML SDV ONE (07:06)
[2018-04-27] MEDS ORDERED: Oxytocin/Normal Saline 60 UNIT/1,000 ML BAG ONE (07:06)
[2018-04-27] MEDS ORDERED: Sodium Chloride 0.9% 100 ML ONE (07:08)
--- NOTE | 2018-04-27 07:57 | HP ---
CHIEF COMPLAINT: Elective repeat section at term. HISTORY OF PRESENT ILLNESS: A 32-year-old 6, para 5-0-0-5 at 39 and 5/7 weeks' gestation, presents to the hospital this morning for planned elective repeat section. Denies any symptoms of preeclampsia. She has had no leakage of fluid or vaginal bleeding. Had some contractions over the weekend that she was able to sleep through, so she did not come in for evaluation. movements have been good. Understands that she would be an excellent candidate for , but based on various discussions in the past, we have determined to proceed with planned repeat at this time. care remarkable for short-interval with late care, presenting at what she thought was 34 weeks' gestation and turned out to be around 31 weeks by ultrasound at that time. She also has morbid obesity and group B strep positive. Also tested positive for the hepatitis C antibody; however, the quant was undetectable in 2017, and the patient did not come in for her preop physical or to have the confirmatory blood work done to the clinic. Otherwise, she lacks transportation and is her primary reason for her insufficient care. LABORATORY DATA: Blood type O positive. Antibody screen negative. Rubella equivocal. Syphilis serology nonreactive. HIV negative. Gonorrhea and Chlamydia negative. Hepatitis C was reactive. Confirmatory testing has not been completed. Wet prep negative. TSH 4.87. Positive group B strep. DELIVERY HISTORY: 1. On 05/19/2002, 39 weeks 6 days' gestation, female, delivered vaginally, named Taylor, weighing 4309 g, scores of 8 and 9. Had a DVT in her left hip complicating the , requiring Lovenox injections for 3 months of the and 3 weeks , delivering at [facility] in [place]. 2. On 04/15/2004, female infant, delivered vaginally, named Agnieszka, weight 3402 g, 12 hours of labor, pushed for about 20 minutes, uncertain about weight. Mother just remembers she was something over 7 pounds, delivered in [place], [place]. 3. On 09/15/2005, delivered a male infant vaginally, named Mark, weighing 2948 g. Only about 3.5 hours of labor and 20 minutes of pushing, had some IV pain medicines and knew the weight was a little over 6 pounds, but could not really remember, delivered in [place], [place]. 4. On 07/19/2012, male infant, delivered vaginally, named Krishan. weight 3175 g. Stage 2 only about 45 minutes and labor itself only about 3 hours, delivered at [facility] in [place]. 5. On 05/28/2017, 39 weeks 3 days' gestation, delivered via primary section and named Greald Lion. Weight 3385 g, delivered via C- section because of failure to progress in the stage 1 of labor. She got to 5 cm dilated and arrested despite adequate MVUs for over 4 hours. Believes baby was asynclitic. PAST MEDICAL HISTORY: 1. Asthma, well controlled without recent exacerbation. 2. Body piercings including ears, tongue, nose, lower lip. Has some tattoos. No IV drug use or blood transfusions. 3. History of DVT in her first on the left hip. Does not believe she has had a coagulopathy workup when she is not . 4. History of chickenpox. 5. History of macrosomic . 6. History of depression. She feels it was situational for about 3 years. 7. History of seizure as a child. There was no clear diagnosis, and she was told she outgrew them. 8. Puberty at age 11 with monthly cycles and 5 days of flow. PAST SURGICAL HISTORY: 05/28/2007, low transverse without complications. FAMILY HISTORY: Mother alive with no known health problems. Father alive with diabetes. She has one half sister alive and well. She has 4 brothers total, all alive and well. Maternal grandmother is . Maternal grandfather with stomach cancer. Paternal grandmother alive and had a history of twins, who has a cancer of uncertain primary. Paternal grandfather is and had hypertension but of some other illness complications. She has 2 aunts, the twins, who as cancer with uncertain primary as children. Paternal aunt, Susie, has diabetes and paternal aunt, Genia, has diabetes as well. SOCIAL HISTORY: She is a former smoker and quit smoking before her 5th . Denies any use of alcohol or drugs. She currently is a [id number]-vb-lyrd mother with her youngest daughter, Gerald, and they have moved to a new place on their own. Father of the baby is Ernesto Cowan. He is a senior network security architect for the [employer] at [place]. He is supportive and has been active throughout her . MEDICATIONS: 1. vitamin 1 daily. 2. Albuterol as needed, which she has not needed in some time. ALLERGIES: Amoxicillin causes angioedema with swelling of the face, throat, and lips or tongue as well as penicillins with a hive allergy reaction. REVIEW OF SYSTEMS: As per the history of present illness. No recent fever, chills, nausea, vomiting, diarrhea, constipation, skin rash, headaches, vision changes, abnormal swelling, dysuria, or any other concerns. PHYSICAL EXAMINATION: General: This is a pleasant, healthy-appearing 32-year-old female. Vital Signs: Blood pressure 107/47, pulse of 86, and she is afebrile. HEENT: Normocephalic and atraumatic. HEENT is unremarkable. Neck: Supple without adenopathy. Heart: Regular without obvious murmur. Lungs: Clear to auscultation bilaterally. Abdomen: Soft and nontender. Positive bowel sounds are present. heart tracing is 135 beats per minute with moderate nyvv-as-hlez variability and accelerations noted. [place] shows some uterine irritability, but no regular contraction pattern, category 1, reassuring, and reactive. Pelvic: Vaginal exam not performed today as we are proceeding with repeat section. She has no symptoms of spontaneous rupture. Extremities: No edema, erythema, or tenderness noted. Neurological: No focal deficits. Psychiatric: Appropriate with good insight and judgment. ASSESSMENT: 1. A 39 and 5/7 weeks' gestation in a 6, para 5-0-0-5. 2. Short-interval . 3. Rubella equivocal. 4. Group B Streptococcus positive, resistant to clindamycin, susceptible to vancomycin. 5. Penicillin allergy. 6. Morbid obesity with a body mass index of 45.77. 7. Mild intermittent asthma. 8. Late care. 9. Lack of adequate transportation. 10.History of section x1. 11.High-risk due to previous obstetrical problems. 12.History of delivery of macrosomic . 13.Hepatitis C antibody test positive. Confirmatory testing has not been completed. 14.History of cholelithiasis. PLAN: At this time, the patient has been admitted to the hospital for repeat section. Reviewed surgery consent in the office, and again, this morning. Details will be outlined in the operative report. The patient is agreeing to proceed, and appropriate consent forms will be signed and can be found in the chart. With the patient's allergies, I will be using gentamicin and clindamycin for the antibiotic prophylaxis for labor. Bag of water intact, so the fact that the group B strep is clindamycin resistant does not contribute to the antibiotic choice at this time, and risk of side effects with vancomycin would be significant. The patient's questions were answered, and she is ready to proceed. [facility] /[id number]
[2018-04-27] MEDS ORDERED: Ondansetron 4 MG/2 ML SDV IV PRN (09:16)
[2018-04-27] MEDS ORDERED: Measles, Mumps & Rubella Vaccine 0.5 ML SDV SUBCUT ONE (09:16)
[2018-04-27] MEDS ORDERED: Naloxone 2 MG/2 ML Syringe IVPUSH PRN (09:16)
[2018-04-27] MEDS ORDERED: Acetaminophen 325 MG Tab PO PRN (09:16)
[2018-04-27] MEDS ORDERED: ePHEDrine 50 MG/ML SDV IVPUSH PRN (09:16)
[2018-04-27] MEDS ORDERED: diphenhydrAMINE 50 MG/ML SDV IVPUSH PRN (09:16)
[2018-04-27] MEDS ORDERED: Misoprostol 400 MCG (4 X 100 MCG TAB) RECTAL PRN (09:16)
[2018-04-27] MEDS ORDERED: Carboprost Tromethamine 250 MCG/1 ML Amp IM ONE (09:16)
[2018-04-27] MEDS ORDERED: Acetaminophen/oxyCODONE 325-5 MG Tab PO PRN (09:16)
[2018-04-27] MEDS ORDERED: Methylergonovine 0.2 MG/1 ML Amp IM PRN (09:16)
[2018-04-27] MEDS: Promethazine 25 MG/ML SDV IM PRN ×2 (11:56→18:44)
[2018-04-27] MEDS ORDERED: Metoclopramide 10 MG/2 ML SDV IVPUSH PRN (12:25)
--- NOTE | 2018-04-27 13:07 | OR ---
DATE: 04/27/2018 PREOPERATIVE DIAGNOSES: 1. A 39 and 5/7 weeks' intrauterine , based on a 31-week ultrasound. 2. 6, para 5-0-0-5. 3. Short interval . 4. Blood type O positive, rubella equivocal, group B streptococcus positive. 5. Penicillin allergy with history of anaphylaxis. 6. Severe obesity. 7. Late care. 8. Mild intermittent asthma. 9. Lack of adequate transportation. 10.History of section x1. 11.History of delivery of macrosomic infant. 12.Hepatitis C antibody positive. The patient has not completed followup confirmatory testing. 13.Anemia of . 14.Urine drug screen negative. POSTPROCEDURE DIAGNOSES: 1. A 39 and 5/7 weeks' intrauterine , based on a 31-week ultrasound. 2. 6, para 5-0-0-5. 3. Short interval . 4. Blood type O positive, rubella equivocal, group B streptococcus positive. 5. Penicillin allergy with history of anaphylaxis. 6. Severe obesity. 7. Late care. 8. Mild intermittent asthma. 9. Lack of adequate transportation. 10.History of section x1. 11.History of delivery of macrosomic . 12.Hepatitis C antibody positive. The patient has not completed followup confirmatory testing. 13.Anemia of . 14.Urine drug screen negative. 15.Status post vacuum-assisted section. 16.Delivery of a viable large for gestational age male infant. BRIEF HISTORY: The patient is a 32-year-old female with the above-listed diagnoses, who presented to the hospital on day of delivery for planned elective repeat section. After obtaining appropriate consent, we proceeded to the operating room without complication or incident. See her admission history and physical for full details. CONSENT: Discussed with the patient and her partner indications, risks, benefits, and alternatives of repeat section for delivery. These risks included but were not limited to risk of infection and plan for preoperative antibiotics using clindamycin and gentamicin due to the patient's history of anaphylaxis despite group B strep being positive and resistant to clindamycin. We are treating the mother in this case and not the infant. The risk of bleeding to the point of requiring a blood transfusion as well as its inherent risks, including transfusion reaction, staying on contraction of blood borne disease or illness, risk of injury to any internal organs and adjacent structures including but not limited to large blood vessels, nerves, vein, bladder, intestines, fallopian tubes, ovaries, uterus, any other adjacent or unintended structures. Discussed the remote risk of complications including a need to transfer to a higher level of care or possibly even . The patient verbalized understanding. Consents were signed and are on the chart. PROCEDURE IN DETAIL: The patient was taken to the operating room and spinal anesthesia obtained. She was laid in the dorsal supine position with leftward tilt, and Mcmanus indwelling catheter placed. She was prepped and draped in the usual fashion, and a skin incision was made at the Pfannenstiel location through the prior scar at 8:10 a.m. and carried down to the underlying fascia using finger dissection and cautery. Fascia was then incised in the midline and extended bilaterally using cautery and careful dissection. Then the superior fascial edge was grasped, tented up with Jaimee's, and rectus muscles were dissected off with cautery and traction. The inferior fascial edge was treated in a similar manner. The peritoneal cavity was entered with blunt finger dissection. An Woody retractor was placed. The bladder flap was then created with Metzenbaum scissors and DeBakey's. Appropriate location of the low transverse uterine incision was identified and made with scalpel at 8:20 a.m. The baby's head was noted to be quite large, and vacuum assistance called for to minimize trauma to the hysterotomy site, and baby delivered at 8:22 a.m. The 's mouth and nose were bulb suctioned, and the baby was taken to the warmer in good condition. The cord blood sample was then obtained, and placenta then delivered by gentle cord traction and concomitant uterine massage. Uterus was cleared of all clots and debris with a dry lap sponge, and then hysterotomy site was closed with a running lock stitch of 1-0 Vicryl in the usual fashion. This repair was confirmed hemostatic. Woody retractor was removed. Pericolic gutters were cleared of all clots and debris. Hysterotomy site was reinspected and remained hemostatic. The peritoneal layer and rectus muscles were brought together in the midline with a running stitch of 1-0 Vicryl taking great care because the patient was having emesis and bowel frequently trying to interfere. This layer was then irrigated, cleared of any clots and debris, and the fascia was closed with a running stitch of 0 looped PDS in the usual fashion. The subcutaneous tissue was then irrigated, and any subcutaneous bleeders stopped. Due to the depth of the adipose tissue, it was reapproximated with a running stitch of 3-0 Monocryl. Skin was then closed with mayra. The patient tolerated the procedure well. Sponge, lap, and instrument counts were correct x3. COMPLICATIONS: None. ESTIMATED BLOOD LOSS: 750 mL. FLUIDS: 1100 mL of crystalloids. URINE OUTPUT: 30 mL, yellow with some particulate debris. FINDINGS: Normal internal female anatomy. Fairly dense scarring of the fascia. Baby is a boy with scores of 9 and 9. weight 9 pounds 11 ounces, 4390 g. Mother and baby both in good condition and will be reunited after mother's recovery in the PACU. [facility] /[id number] DEVORAH
[2018-04-27] MEDS ORDERED: Oxytocin/Normal Saline 30 UNIT/500 ML BAG IV ONE (13:08)
[2018-04-27] MEDS: Simethicone 80 MG Tab.Chew PO SCH ×3 (14:11→20:45)
[2018-04-27] MEDS: Ketorolac 30 MG/ML SDV IVPUSH SCH ×2 (15:02→20:44)
[2018-04-27] MEDS ORDERED: Bupivacaine 0.75%/D5W 2 ML Amp INJECT ONE (15:47)
[2018-04-27] MEDS ORDERED: fentaNYL 100 MCG/2 ML SDV IV ONE (15:47)
[2018-04-27] MEDS ORDERED: Ondansetron 4 MG/2 ML SDV IV ONE (15:47)
[2018-04-27] MEDS ORDERED: Ketorolac 30 MG/ML SDV IVPUSH ONE (15:47)
[2018-04-27] MEDS ORDERED: diphenhydrAMINE 50 MG/ML SDV IV ONE (15:47)
[2018-04-27] MEDS ORDERED: Morphine PF 1 MG/ML Amp ONE (15:47)
[2018-04-27] MEDS ORDERED: ePHEDrine 50 MG/ML SDV IV ONE (15:47)
[2018-04-28] MEDS: Ketorolac 30 MG/ML SDV IVPUSH SCH (02:58)
[2018-04-28] MEDS: Lactated Ringers 1,000 ML IV SCH (03:12)
[2018-04-28] MEDS: Acetaminophen/oxyCODONE 325-5 MG Tab PO PRN ×4 (07:58→22:37)
[2018-04-28] MEDS: Ferrous Sulfate 325 MG Tab PO SCH (07:58)
[2018-04-28] MEDS: Simethicone 80 MG Tab.Chew PO SCH ×4 (07:59→21:02)
[2018-04-28] MEDS: Prenatal Multivitamin with Calcium/Folic Acid/Iron Tab PO SCH (08:00)
[2018-04-28] MEDS: Docusate Sodium 100 MG Cap PO PRN ×2 (09:02→21:02)
[2018-04-28] MEDS ORDERED: Albuterol 0.083% 2.5 MG/3 ML Neb Soln NEB PRN (13:01)
[2018-04-28] MEDS: Ibuprofen 800 MG Tab PO PRN ×2 (14:19→22:36)
[2018-04-29] MEDS: Acetaminophen/oxyCODONE 325-5 MG Tab PO PRN ×5 (02:36→22:26)
[2018-04-29] MEDS: Prenatal Multivitamin with Calcium/Folic Acid/Iron Tab PO SCH (09:24)
[2018-04-29] MEDS: Docusate Sodium 100 MG Cap PO PRN ×2 (09:24→20:46)
[2018-04-29] MEDS: Ibuprofen 800 MG Tab PO PRN ×2 (09:25→18:03)
[2018-04-29] MEDS: Simethicone 80 MG Tab.Chew PO SCH ×4 (09:25→20:46)
[2018-04-29] MEDS: Ferrous Sulfate 325 MG Tab PO SCH (10:00)
[2018-04-30] MEDS: Acetaminophen/oxyCODONE 325-5 MG Tab PO PRN ×2 (03:23→08:04)
[2018-04-30] MEDS: Ibuprofen 800 MG Tab PO PRN (03:23)
[2018-04-30] MEDS: Simethicone 80 MG Tab.Chew PO SCH (08:05)
[2018-04-30] MEDS: Prenatal Multivitamin with Calcium/Folic Acid/Iron Tab PO SCH (08:05)
[2018-04-30] MEDS: Ferrous Sulfate 325 MG Tab PO SCH (08:07)
[2018-04-30 08:35] VITALS: BP 113/65
--- NOTE | 2018-05-01 13:03 | PCM.PN ---
- General Info Date of Service: 04/28/18 Admission Dx/Problem (Free Text): Repeat section Subjective Update: Tisha is overall doing well, her pain is fairly well-controlled with IV Toradol as well as oral oxycodone. She started having a little bit of trouble last night with her breathing, she has a past history of intermittent asthma, and does use an albuterol nebulizer at home. That was given to her last night, and she did much better after this. - Patient Data Vitals - Most Recent: Last Vital Signs Temp 36.6 C 04/30/18 08:00 Pulse 82 04/30/18 08:00 Resp 16 04/30/18 08:00 BP 113/65 04/30/18 08:00 Pulse Ox 98 04/30/18 08:00 Weight - Most Recent: 128.367 kg Med Orders - Current: Current Medications Discontinued Medications Acetaminophen (Tylenol) 650 mg PO Q6H PRN PRN Reason: mild pain or fever Albuterol (Proventil Neb Soln) 2.5 mg NEB Q2H PRN PRN Reason: Shortness of Breath Bupivacaine HCl/Dextrose (Marcaine 0.75% Spinal) 2 ml INJECT .STK-MED ONE Stop: 04/27/18 15:48 Carboprost Tromethamine (Hemabate Ds) 250 mcg IM ONETIME ONE Stop: 04/27/18 09:17 Last Admin: 04/27/18 15:59 Dose: Not Given Citric Acid/Sodium Citrate (Bicitra Solution) 30 ml PO ONETIME ONE Stop: 04/27/18 05:59 Last Admin: 04/27/18 07:30 Dose: 30 ml Clindamycin Phosphate (Cleocin) Confirm Administered Dose 900 mg .ROUTE .STK- MED ONE Stop: 04/27/18 07:07 Diphenhydramine HCl (Benadryl) 25 mg IVPUSH Q6H PRN PRN Reason: Itching or Nausea Diphenhydramine HCl (Benadryl) 50 mg IV .STK-MED ONE Stop: 04/27/18 15:48 Docusate Sodium (Colace) 100 mg PO Q12H PRN PRN Reason: Constipation Last Admin: 04/29/18 20:46 Dose: 100 mg Ephedrine Sulfate (Ephedrine Sulfate) 5 mg IVPUSH SEECOMMENT PRN PRN Reason: Other Ephedrine Sulfate (Ephedrine Sulfate) 20 mg IV .STK-MED ONE Stop: 04/27/18 15:48 Fentanyl (Sublimaze) 20 mcg IV .STK-MED ONE Stop: 04/27/18 15:48 Ferrous Sulfate (Ferrous Sulfate) 325 mg PO BRK EZRA Last Admin: 04/30/18 08:07 Dose: 325 mg Lactated Ringer's (Ringers, Lactated) 1,000 mls @ 125 mls/hr IV ASDIRECTED EZRA Last Admin: 04/27/18 10:42 Dose: 125 mls/hr Tranexamic Acid 1,000 mg/ (Sodium Chloride) 110 mls @ 660 mls/hr IV ONETIME PRN PRN Reason: Bleeding Gentamicin Sulfate 460 mg/ (Sodium Chloride) 111.5 mls @ 222.752 mls/hr IV ONETIME ONE Stop: 04/27/18 06:28 Last Admin: 04/27/18 06:53 Dose: 222.752 mls/hr Lactated Ringer's (Ringers, Lactated) 1,000 mls @ 125 mls/hr IV ASDIRECTED EZRA Lactated Ringer's (Ringers, Lactated) 1,000 mls @ 500 mls/hr IV ONETIME ONE Stop: 04/27/18 07:59 Last Admin: 04/27/18 06:12 Dose: 500 mls/hr Clindamycin Phosphate 900 mg/ (Sodium Chloride) 106 mls @ 200 mls/hr IV ONETIME ONE Stop: 04/27/18 06:36 Last Admin: 04/27/18 07:29 Dose: 200 mls/hr Oxytocin/Sodium Chloride (Pitocin In Ns 30 Unit/500 Ml) 30 unit in 500 mls @ 2 mls/hr IV TITRATE EZRA; Protocol Last Titration: 04/27/18 11:15 Dose: 50 mls/hr Oxytocin/Sodium Chloride (Pitocin In Ns 30 Unit/500 Ml) Confirm Administered Dose 60 unit in 1,000 mls @ as directed .ROUTE .STK-MED ONE Stop: 04/27/18 07:07 Sodium Chloride (Normal Saline) Confirm Administered Dose 100 mls @ as directed .ROUTE .STK-MED ONE Stop: 04/27/18 07:09 Lactated Ringer's (Ringers, Lactated) 1,000 mls @ 125 mls/hr IV ASDIRECTED EZRA Last Admin: 04/28/18 03:12 Dose: 125 mls/hr Oxytocin/Sodium Chloride (Pitocin In Ns 30 Unit/500 Ml) 30 unit in 500 mls @ as directed IV .STK-MED ONE Stop: 04/27/18 13:09 Ibuprofen (Motrin) 800 mg PO Q8H PRN PRN Reason: mild pain or fever Last Admin: 04/30/18 03:23 Dose: 800 mg Ketorolac Tromethamine (Toradol) 15 mg IVPUSH Q6H [facility] Stop: 04/28/18 03:01 Last Admin: 04/28/18 02:58 Dose: 15 mg Ketorolac Tromethamine (Toradol) 30 mg IVPUSH .STK-MED ONE Stop: 04/27/18 15:48 Lidocaine HCl (Xylocaine-Mpf 1%) 3 ml INJECT .STK-MED ONE Stop: 04/27/18 15:48 Measles/Mumps/Rubella Vaccine Live (M-M-R Ii Vaccine) 0.5 ml SUBCUT .ONCE ONE Stop: 04/27/18 09:17 Last Admin: 04/28/18 09:02 Dose: 0.5 ml Methylergonovine Maleate (Methergine) 0.2 mg IM ONETIME PRN PRN Reason: Excessive Vaginal Bleeding Metoclopramide HCl (Reglan) 10 mg IVPUSH ONETIME PRN PRN Reason: nausea Last Admin: 04/27/18 12:41 Dose: 10 mg Misoprostol (Cytotec) 800 mcg RECTAL ASDIRECTED PRN PRN Reason: Excessive bleeding Morphine Sulfate (Duramorph Pf) 0.2 mg .XX .STK-MED ONE Stop: 04/27/18 15:48 Naloxone HCl (Narcan) 0.1 mg IVPUSH SEECOMMENT PRN PRN Reason: Respiratory Depression Ondansetron HCl (Zofran) 4 mg IV Q4H PRN PRN Reason: Nausea/Vomiting Last Admin: 04/27/18 11:33 Dose: 4 mg Ondansetron HCl (Zofran) 4 mg IV .STK-MED ONE Stop: 04/27/18 15:48 Oxycodone/Acetaminophen (Percocet 325-5 Mg) 1 tab PO Q4H PRN PRN Reason: Pain (moderate 4-6) Oxycodone/Acetaminophen (Percocet 325-5 Mg) 2 tab PO Q4H PRN PRN Reason: Pain (moderate 4-6) Last Admin: 04/30/18 08:04 Dose: 2 tab Prenat Multivit/Flas[place]/Iron/Folic Ac ( Plus Iron) 1 each PO DAILY EZRA Last Admin: 04/30/18 08:05 Dose: 1 each Promethazine HCl (Phenergan) 25 mg IM Q6H PRN PRN Reason: Nausea Last Admin: 04/27/18 18:44 Dose: 25 mg Simethicone (Simethicone) 160 mg PO QID EZRA Last Admin: 04/30/18 08:05 Dose: 160 mg Sodium Chloride (Saline Flush) 10 ml FLUSH ASDIRECTED PRN PRN Reason: Keep Vein Open - Exam General: Alert, Oriented HEENT: Mucous Membr. Moist/Joseph Lungs: Clear to Auscultation Cardiovascular: Regular Rate, Regular Rhythm GI/Abdominal Exam: Other (Soft, nontender, fundus firm) Extremities: Normal Capillary Refill Skin: Warm, Dry, Intact Wound/Incisions: Healing Well, Dressing Dry and Intact - Problem List & Annotations (1) Status post repeat low transverse section SNOMED Code(s): 477844547, 69212404, 981584837, 379659146, 659393592 Code(s): Z98.891 - HISTORY OF UTERINE SCAR FROM PREVIOUS SURGERY Status: Acute - Problem List Review Problem List Initiated/Reviewed/Updated: Yes - Plan Plan:: 1. Continue postoperative cares and orders 2. We will continue the albuterol as needed via nebulizer 3. I encouraged mother to evaluate as much as possible to help with both her breathing as well as her pain.
--- NOTE | 2018-05-01 13:05 | PCM.PN ---
- General Info Date of Service: 04/29/18 Admission Dx/Problem (Free Text): Repeat section Subjective Update: Lois is continuing to improve, did not have any further breathing issues since she's been using the albuterol. She still is complaining of significant pain along her incision, and we did order an extra dose of IV Toradol last night. She is eating well, urinating without difficulty. - Patient Data Vitals - Most Recent: Last Vital Signs Temp 36.6 C 04/30/18 08:00 Pulse 82 04/30/18 08:00 Resp 16 04/30/18 08:00 BP 113/65 04/30/18 08:00 Pulse Ox 98 04/30/18 08:00 Weight - Most Recent: 128.367 kg Med Orders - Current: Current Medications Discontinued Medications Acetaminophen (Tylenol) 650 mg PO Q6H PRN PRN Reason: mild pain or fever Albuterol (Proventil Neb Soln) 2.5 mg NEB Q2H PRN PRN Reason: Shortness of Breath Bupivacaine HCl/Dextrose (Marcaine 0.75% Spinal) 2 ml INJECT .STK-MED ONE Stop: 04/27/18 15:48 Carboprost Tromethamine (Hemabate Ds) 250 mcg IM ONETIME ONE Stop: 04/27/18 09:17 Last Admin: 04/27/18 15:59 Dose: Not Given Citric Acid/Sodium Citrate (Bicitra Solution) 30 ml PO ONETIME ONE Stop: 04/27/18 05:59 Last Admin: 04/27/18 07:30 Dose: 30 ml Clindamycin Phosphate (Cleocin) Confirm Administered Dose 900 mg .ROUTE .STK- MED ONE Stop: 04/27/18 07:07 Diphenhydramine HCl (Benadryl) 25 mg IVPUSH Q6H PRN PRN Reason: Itching or Nausea Diphenhydramine HCl (Benadryl) 50 mg IV .STK-MED ONE Stop: 04/27/18 15:48 Docusate Sodium (Colace) 100 mg PO Q12H PRN PRN Reason: Constipation Last Admin: 04/29/18 20:46 Dose: 100 mg Ephedrine Sulfate (Ephedrine Sulfate) 5 mg IVPUSH SEECOMMENT PRN PRN Reason: Other Ephedrine Sulfate (Ephedrine Sulfate) 20 mg IV .STK-MED ONE Stop: 04/27/18 15:48 Fentanyl (Sublimaze) 20 mcg IV .STK-MED ONE Stop: 04/27/18 15:48 Ferrous Sulfate (Ferrous Sulfate) 325 mg PO BRK EZRA Last Admin: 04/30/18 08:07 Dose: 325 mg Lactated Ringer's (Ringers, Lactated) 1,000 mls @ 125 mls/hr IV ASDIRECTED EZRA Last Admin: 04/27/18 10:42 Dose: 125 mls/hr Tranexamic Acid 1,000 mg/ (Sodium Chloride) 110 mls @ 660 mls/hr IV ONETIME PRN PRN Reason: Bleeding Gentamicin Sulfate 460 mg/ (Sodium Chloride) 111.5 mls @ 222.752 mls/hr IV ONETIME ONE Stop: 04/27/18 06:28 Last Admin: 04/27/18 06:53 Dose: 222.752 mls/hr Lactated Ringer's (Ringers, Lactated) 1,000 mls @ 125 mls/hr IV ASDIRECTED [facility] Lactated Ringer's (Ringers, Lactated) 1,000 mls @ 500 mls/hr IV ONETIME ONE Stop: 04/27/18 07:59 Last Admin: 04/27/18 06:12 Dose: 500 mls/hr Clindamycin Phosphate 900 mg/ (Sodium Chloride) 106 mls @ 200 mls/hr IV ONETIME ONE Stop: 04/27/18 06:36 Last Admin: 04/27/18 07:29 Dose: 200 mls/hr Oxytocin/Sodium Chloride (Pitocin In Ns 30 Unit/500 Ml) 30 unit in 500 mls @ 2 mls/hr IV TITRATE EZRA; Protocol Last Titration: 04/27/18 11:15 Dose: 50 mls/hr Oxytocin/Sodium Chloride (Pitocin In Ns 30 Unit/500 Ml) Confirm Administered Dose 60 unit in 1,000 mls @ as directed .ROUTE .STK-MED ONE Stop: 04/27/18 07:07 Sodium Chloride (Normal Saline) Confirm Administered Dose 100 mls @ as directed .ROUTE .STK-MED ONE Stop: 04/27/18 07:09 Lactated Ringer's (Ringers, Lactated) 1,000 mls @ 125 mls/hr IV ASDIRECTED [facility] Last Admin: 04/28/18 03:12 Dose: 125 mls/hr Oxytocin/Sodium Chloride (Pitocin In Ns 30 Unit/500 Ml) 30 unit in 500 mls @ as directed IV .STK-MED ONE Stop: 04/27/18 13:09 Ibuprofen (Motrin) 800 mg PO Q8H PRN PRN Reason: mild pain or fever Last Admin: 04/30/18 03:23 Dose: 800 mg Ketorolac Tromethamine (Toradol) 15 mg IVPUSH Q6H EZRA Stop: 04/28/18 03:01 Last Admin: 04/28/18 02:58 Dose: 15 mg Ketorolac Tromethamine (Toradol) 30 mg IVPUSH .STK-MED ONE Stop: 04/27/18 15:48 Lidocaine HCl (Xylocaine-Mpf 1%) 3 ml INJECT .STK-MED ONE Stop: 04/27/18 15:48 Measles/Mumps/Rubella Vaccine Live (M-M-R Ii Vaccine) 0.5 ml SUBCUT .ONCE ONE Stop: 04/27/18 09:17 Last Admin: 04/28/18 09:02 Dose: 0.5 ml Methylergonovine Maleate (Methergine) 0.2 mg IM ONETIME PRN PRN Reason: Excessive Vaginal Bleeding Metoclopramide HCl (Reglan) 10 mg IVPUSH ONETIME PRN PRN Reason: nausea Last Admin: 04/27/18 12:41 Dose: 10 mg Misoprostol (Cytotec) 800 mcg RECTAL ASDIRECTED PRN PRN Reason: Excessive bleeding Morphine Sulfate (Duramorph Pf) 0.2 mg .XX .STK-MED ONE Stop: 04/27/18 15:48 Naloxone HCl (Narcan) 0.1 mg IVPUSH SEECOMMENT PRN PRN Reason: Respiratory Depression Ondansetron HCl (Zofran) 4 mg IV Q4H PRN PRN Reason: Nausea/Vomiting Last Admin: 04/27/18 11:33 Dose: 4 mg Ondansetron HCl (Zofran) 4 mg IV .STK-MED ONE Stop: 04/27/18 15:48 Oxycodone/Acetaminophen (Percocet 325-5 Mg) 1 tab PO Q4H PRN PRN Reason: Pain (moderate 4-6) Oxycodone/Acetaminophen (Percocet 325-5 Mg) 2 tab PO Q4H PRN PRN Reason: Pain (moderate 4-6) Last Admin: 04/30/18 08:04 Dose: 2 tab Prenat Multivit/[place]/Iron/Folic Ac ( Plus Iron) 1 each PO DAILY [facility] Last Admin: 04/30/18 08:05 Dose: 1 each Promethazine HCl (Phenergan) 25 mg IM Q6H PRN PRN Reason: Nausea Last Admin: 04/27/18 18:44 Dose: 25 mg Simethicone (Simethicone) 160 mg PO QID [facility] Last Admin: 04/30/18 08:05 Dose: 160 mg Sodium Chloride (Saline Flush) 10 ml FLUSH ASDIRECTED PRN PRN Reason: Keep Vein Open - Exam General: Alert, Oriented Neck: Supple Lungs: Clear to Auscultation Cardiovascular: Regular Rate, Regular Rhythm GI/Abdominal Exam: Normal Bowel Sounds, Soft, Other (Fundus firm) Extremities: Normal Capillary Refill Skin: Warm, Dry, Intact Wound/Incisions: Healing Well - Problem List & Annotations (1) Status post repeat low transverse section SNOMED Code(s): 248087183, 68175142, 946775930, 111864194, 351940064 Code(s): Z98.891 - HISTORY OF UTERINE SCAR FROM PREVIOUS SURGERY Status: Acute - Problem List Review Problem List Initiated/Reviewed/Updated: Yes - Plan Plan:: 1. Continue postoperative cares and orders 2. We will continue the albuterol as needed via nebulizer 3. I encouraged mother to evaluate as much as possible to help with both her breathing as well as her pain.
== END 2018-04-30 11:25 | disposition home or self-care (01) | DRG 765 ==
LOC: DL.MS 05:49 → DL.OB 06:17 → DL.MS 08:22 → OBSVTOIN 08:22 → EEVIPCON 08:22
PROVIDERS: ADMIT Family Medicine; ATTEND Family Medicine
PROC: 10D00Z1 Extraction of Products of Conception, Low, Open Approach (ICD-10-PCS; principal; 2018-04-27)
DX: O34.211 Maternal care for low transverse scar from previous cesarean delivery (principal); Z68.42 Body mass index [BMI] 45.0-49.9, adult; O98.42 Viral hepatitis complicating childbirth; Z3A.39 39 weeks gestation of pregnancy; Z37.0 Single live birth; O99.214 Obesity complicating childbirth; E66.01 Morbid (severe) obesity due to excess calories; O99.824 Streptococcus B carrier state complicating childbirth; Z88.0 Allergy status to penicillin; O75.89 Other specified complications of labor and delivery; J45.20 Mild intermittent asthma, uncomplicated; O99.013 Anemia complicating pregnancy, third trimester; D64.9 Anemia, unspecified; B19.20 Unspecified viral hepatitis C without hepatic coma; Z87.891 Personal history of nicotine dependence
CPT/HCPCS: 01961; 36415; 59025; 80305-QW; 85027; 86850; 86900; 86901; 90707; 94640; A9270-GY; J1200; J1580; J1885; J2274; J2405; J2550; J2590; J2765; J3010; J7050; J7120; S0077

== ENCOUNTER 2018-11-17 16:28 | Emergency (ER) | payer OTHER, MEDICAID ==
[2018-11-17] MEDS ORDERED: Acetaminophen/HYDROcodone 325-10 MG Tab PO ONE (16:58)
--- NOTE | 2018-11-17 18:10 | EDM.PDOC ---
Scribed by Florencia Rivas 11/17/18 [id number] for Babak Jaime MD ED HPI GENERAL MEDICAL PROBLEM - General Chief Complaint: Lower Extremity Injury/Pain Stated Complaint: AMBULANCE Time Seen by Provider: 11/17/18 16:27 Source of Information: Reports: Patient, EMS, EMS Notes Reviewed, RN, RN Notes Reviewed History Limitations: Reports: No Limitations - History of Present Illness INITIAL COMMENTS - FREE TEXT/NARRATIVE: Patient presents to ER with [facility] from the [facility]. She slipped getting out of a van and injured her left knee. No other injury. Onset: Today Duration: Constant Location: Reports: Lower Extremity, Left Quality: Reports: Ache Severity: Moderate Improves with: Reports: None Worsens with: Reports: None Associated Symptoms: Reports: No Other Symptoms Left Leg Pain Score (Numeric/FACES): 8 - Related Data Allergies Allergy/AdvReac Type Severity Reaction Status Date / Time amoxicillin Allergy Hives Verified 11/17/18 16:38 Penicillins Allergy Hives Verified 11/17/18 16:38 Home Meds: Home Meds Albuterol [Proventil HFA] 2 puff INH Q4H PRN 07/26/16 [History] Albuterol/Ipratropium [DuoNeb 3.0-0.5 MG/3 ML] 3 ml NEB Q2H PRN #0 neb 07/29/16 [Rx] Past Medical History Cardiovascular History: Reports: Blood Clots/VTE/DVT Other Cardiovascular History: To left hip following first delivery in 2001 Respiratory History: Reports: Asthma Gastrointestinal History: Reports: Cholelithiasis, Other (See Below) Other Gastrointestinal History: increased LFT's Genitourinary History: Reports: UTI, Recurrent SPECIALIST PHYSICIAN History: Reports: Other SPECIALIST PHYSICIAN History: hx yeast infection, bv Psychiatric History: Reports: Depression Hematologic History: Reports: Anemia, Other (See Below) Other Hematologic History: + hep c - Infectious Disease History Infectious Disease History: Reports: Hepatitis C - Past Surgical History Cardiovascular Surgical History: Reports: None GI Surgical History: Reports: None Female Surgical History: Reports: None Social & Family History - Family History Family Medical History: Noncontributory Respiratory: Reports: Asthma Endocrine/Metabolic: Reports: Diabetes, type II - Caffeine Use Caffeine Use: Reports: Soda - Sexual History Sexual History: Reports: Sexually Active - Living Situation & Occupation Living situation: Reports: with Family Occupation: Employed Review of Systems - Review of Systems Review Of Systems: ROS reveals no pertinent complaints other than HPI. ED EXAM, GENERAL - Physical Exam Exam: See Below Exam Limited By: No Limitations General Appearance: Alert, WD/WN, No Apparent Distress, Obese Throat/Mouth: Normal Inspection, Normal Voice Head: Atraumatic, Normocephalic Neck: Normal Inspection Respiratory/Chest: No Respiratory Distress, Lungs Clear, No Accessory Muscle Use , Chest Non-Tender Cardiovascular: Regular Rate, Rhythm (Female) Exam: Deferred Rectal (Female) Exam: Deferred Back Exam: Normal Inspection, Full Range of Motion Extremities: No Pedal Edema, Normal Capillary Refill, Joint Swelling (mild left knee soft tissue swelling), Limited Range of Motion (Left knee held in relative full extension as position of comfort), Other (No visible bruising, deformity, or increased warmth. Skin is intact.). No: Arcelia's Sign, Redness Neurological: Alert, Oriented, Normal Cognition, No Motor/Sensory Deficits Psychiatric: Normal Affect, Normal Mood Skin Exam: Warm, Dry, Intact, Normal Color, No Rash Course - Vital Signs Last Recorded V/S: Last Vital Signs Temp 36.6 C 11/17/18 16:31 Pulse 74 11/17/18 16:31 Resp 20 11/17/18 16:31 BP 125/64 11/17/18 16:31 Pulse Ox 99 11/17/18 16:31 - Orders/Labs/Meds Orders: Active Orders 24 hr Category Date Time Status Immobilizer [RC] ASDIRECTED Care 11/17/18 17:44 Active Knee 3V Lt [CR] Urgent Exams 11/17/18 16:59 Taken DME for Discharge [COMM] Routine Oth 11/17/18 18:03 Ordered Meds: Medications Discontinued Medications Generic Name Dose Route Start Last Admin Trade Name Freq PRN Reason Stop Dose Admin Hydrocodone Bitart/Acetaminophen 1 tab 11/17/18 16:58 11/17/18 17:19 [place] 325-10 Mg PO 11/17/18 16:59 1 tab ONETIME ONE Administration - Radiology Interpretation Free Text/Narrative:: X-ray Left Knee: no acute fractures, see Rad. report. Departure - Departure Time of Disposition: 18:05 Disposition: Home, Self-Care 01 Condition: Good Clinical Impression: Derangement of left knee Left knee sprain Qualifiers: Encounter type: initial encounter Involved ligament of knee: unspecified ligament Qualified Code(s): S83.92XA - Sprain of unspecified site of left knee, initial encounter - Discharge Information *PRESCRIPTION DRUG MONITORING PROGRAM REVIEWED*: No *COPY OF PRESCRIPTION DRUG MONITORING REPORT IN PATIENT MATT: No Instructions: Knee Sprain, Adult, [id number] Forms: ED Department Discharge Additional Instructions: Rx: Naprosyn 500mg Rx: Tramadol 50mg *Do not drive or work while under the influence of this medication. Use knee immobilizer and crutches for 7 to 10 days as needed. Follow up in clinic in 5 ot 7 days for recheck. - My Orders Last 24 Hours: My Active Orders 11/17/18 16:59 Knee 3V Lt [CR] Urgent 11/17/18 17:44 Immobilizer [RC] ASDIRECTED 11/17/18 18:03 DME for Discharge [COMM] Routine - Assessment/Plan Last 24 Hours: My Active Orders 11/17/18 16:59 Knee 3V Lt [CR] Urgent 11/17/18 17:44 Immobilizer [RC] ASDIRECTED 11/17/18 18:03 DME for Discharge [COMM] Routine I have read and agree with the documentation that has been completed regarding this visit. By signing this record, I attest that the documentation was completed in my physical presence and is an accurate record of the encounter.
[2018-11-17 18:18] VITALS: BP 117/57
== END 2018-11-17 18:18 | disposition home or self-care (01) ==
LOC: DL.ED 16:28
DX: S83.92XA Sprain of unspecified site of left knee, initial encounter (principal); M23.92 Unspecified internal derangement of left knee; W01.0XXA Fall on same level from slipping, tripping and stumbling without subsequent striking against object, initial encounter; Z88.1 Allergy status to other antibiotic agents; Z88.0 Allergy status to penicillin
CPT/HCPCS: 73562; 99283; A9270

== ENCOUNTER 2020-02-11 05:19 | Inpatient (IN) | payer MEDICAID, OTHER ==
[2020-02-11] MEDS ORDERED: Clindamycin Phosphate 900 MG in Sodium Chloride 0.9% 100 ML IV ONE (06:00)
[2020-02-11] MEDS ORDERED: Tranexamic Acid 1,000 MG in Sodium Chloride 0.9% 100 ML IV PRN (06:00)
[2020-02-11] MEDS ORDERED: Citric Acid/Sodium Citrate Solution 30 ML Cup PO ONE (06:00)
[2020-02-11] MEDS ORDERED: Sodium Chloride 0.9% 10 ML Syringe FLUSH PRN (06:00)
[2020-02-11] MEDS ORDERED: Lactated Ringers 1,000 ML IV SCH ×2 (06:00→11:15)
[2020-02-11] MEDS: Lactated Ringers 1,000 ML IV SCH ×6 (06:20→22:47)
[2020-02-11 06:33] LABS: HEMOGLOBIN A1C 6.1 % (<5.7)
[2020-02-11] MEDS ORDERED: Oxytocin/Normal Saline 60 UNIT/1,000 ML BAG ONE (07:04)
[2020-02-11] MEDS ORDERED: Citric Acid/Sodium Citrate Solution 30 ML Cup ONE (08:13)
[2020-02-11] MEDS: Oxytocin/Normal Saline 30 UNIT/500 ML BAG IV SCH ×2 (09:46→13:44)
--- NOTE | 2020-02-11 10:12 | OBOUT ---
DATE: 02/11/2020 INDICATION FOR NST: Evaluation prior to planned . REPORT: Baseline heart rate 140 beats per minute at baseline. Moderate [id number] variability. Accelerations noted. [place] shows no contractions. INTERPRETATION: Category 1 reassuring and reactive [facility]ST. [facility] /[id number]
[2020-02-11] MEDS ORDERED: Oxytocin/Normal Saline 30 UNIT/500 ML BAG IV ONE (10:37)
[2020-02-11] MEDS ORDERED: ePHEDrine 50 MG/ML SDV IVPUSH PRN (11:03)
[2020-02-11] MEDS ORDERED: Naloxone 2 MG/2 ML Syringe IVPUSH PRN (11:03)
[2020-02-11] MEDS ORDERED: Methylergonovine 0.2 MG/1 ML Amp IM PRN (11:03)
[2020-02-11] MEDS ORDERED: Ondansetron 4 MG/2 ML SDV IVPUSH PRN (11:03)
[2020-02-11] MEDS ORDERED: Carboprost Tromethamine 250 MCG/1 ML Amp IM PRN (11:03)
[2020-02-11] MEDS ORDERED: Acetaminophen/oxyCODONE 325-5 MG Tab PO PRN (11:03)
[2020-02-11] MEDS ORDERED: Acetaminophen 325 MG Tab PO PRN (11:03)
[2020-02-11] MEDS ORDERED: diphenhydrAMINE 50 MG/ML SDV IVPUSH PRN (11:03)
[2020-02-11] MEDS ORDERED: Misoprostol 400 MCG (4 X 100 MCG TAB) RECTAL PRN (11:03)
[2020-02-11] MEDS ORDERED: Promethazine 25 MG/ML SDV IM ONE (11:38)
[2020-02-11] MEDS ORDERED: Famotidine 20 MG/2 ML SDV IVPUSH ONE (11:39)
[2020-02-11] MEDS ORDERED: Morphine PF 1 MG/ML Amp ITHECAL ONE (11:49)
[2020-02-11] MEDS ORDERED: Dexamethasone 4 MG/ML SDV IV ONE (11:49)
[2020-02-11] MEDS ORDERED: Sodium Bicarbonate 4.2% 2.5 MEQ/5 ML SDV ONE (11:50)
[2020-02-11] MEDS ORDERED: Lactated Ringers 1,000 ML IV ONE (11:50)
[2020-02-11] MEDS ORDERED: Ondansetron 4 MG/2 ML SDV IV ONE (11:50)
--- NOTE | 2020-02-11 11:53 | OR ---
DATE: 02/11/2020 PREOPERATIVE DIAGNOSES: 1. 40 and 0/7 weeks based on 37 weeks 5 days ultrasound. 2. 8, para 6-0-1- 6. 3. Gestational diabetes, controlled with insulin. 4. Morbid obesity. 5. Blood type O positive, rubella immune, group B Strep negative. 6. Anemia of . 7. Late and insufficient care. 8. Hepatitis C antibody positive. 9. History of x2. 10.History of macrosomic infants x2 without being diabetic. POSTPROCEDURE DIAGNOSES: 1. 40 and 0/7 weeks based on 37 weeks 5 day ultrasound. 2. 8, para 6-0-1- 6. 3. Gestational diabetes, controlled with insulin. 4. Morbid obesity. 5. Blood type O positive, rubella immune, group B Strep negative. 6. Anemia of . 7. Late and insufficient care. 8. Hepatitis C antibody positive. 9. History of x2. 10.History of macrosomic infants x2 without being diabetic. 11.Status post repeat low transverse section with delivery of viable male . BRIEF HISTORY: A 34-year-old female with the above-listed diagnoses, brought in electively at term for repeat . See admission history and physical for problems with dating criteria. The patient had a miscarriage in April 2019 and then essentially had bleeding off and on throughout the month of May and spotting throughout the month of June. Had a single isolated episode of large gush with clot in August and started feeling movement in October and did not get her 1st care visit until 37 weeks by ultrasound, and she would have been I believe 30 weeks by really uncertain LMP, so that complicated the delivery date. Otherwise, the patient is doing well on day of admission. Blood sugars have been very well controlled and admission glucose was 89. CONSENT: Discussed with the patient and her the indications, risks, benefits, and alternatives of repeat low transverse section for delivery as well as issues with dating criteria. Discussed risk of bleeding to the point of blood transfusion and its inherent risks. Discussed potential injury to large blood vessels, nerves, veins, internal organs and adjacent structures including but not limited to bowel, bladder, uterus, and even potential injury to the baby. Discussed complications that could result in need of transfer of the mother and/or baby to a tertiary care center. Their questions were answered and written consent forms were signed and in the chart. SURGEON: Jeannie Medellin MD SURVEILLANCE SYSTEM MONITOR: Ino Glass MD ANESTHESIA: Spinal anesthesia. DETAILS OF PROCEDURE: The patient was brought to the operating room and spinal anesthesia obtained. She was laid in the dorsal supine position with leftward tilt and Mcmanus indwelling catheter was placed. Abdomen was prepped and draped in the usual fashion. A Pfannenstiel skin incision made through the prior uterine scar and carried down through the subcutaneous tissues using blunt dissection and cautery. Fascia was incised with cautery and extended bilaterally using Fraser scissors. Rectus sheath was then elevated with Jaimee's and rectus muscles dissected off with cautery and traction. Inferior fascial edge treated in a similar manner. The peritoneal layer was then entered with careful cautery and finger dissection. Uterus examined and appropriate location for a low transverse incision identified. Woody retractor placed. Bladder flap created with Metzenbaums and pickups. Uterine incision then made and carried down with scalpel and ultimately a blunt finger entrance into the uterine cavity and hysterotomy site created with Vanegas method. Amniotic fluid sac was then ruptured with Allis clamps and fluid noted to be light yellow tinged. Infant's head was then brought up into the hysterotomy site and with concomitant uterine massage, baby delivered and infant's mouth and nose were bulb suctioned and 3-vessel umbilical cord was doubly clamped and cut. While baby was being taken to the warmer, the cord clamped did come off resulting in a 3 to 5 mL estimated blood loss from the baby's cord. Baby then quickly re- clamped and dried and resuscitated with usual stimulation and drying and blow-by oxygen. Cord blood sample was obtained and placenta delivered by gentle cord traction and concomitant uterine massage. Uterus was then cleared of all clots and debris with a dry lap sponge. Hysterotomy site closed with a running lock suture of 0 Vicryl in the usual fashion. Second imbricating layer also placed with good hemostatic result. Woody retractor removed. Paracolic gutter was cleared of all clots and debris. Hysterotomy site reinspected and remained hemostatic. Peritoneal layer closed with a running stitch of 0 Vicryl and the patient tolerated this all well. The fascial layer was closed with a running stitch of 0 looped PDS in usual fashion and then skin layer closed with subcuticular stitch and Steri-Strips and Mastisol for reinforcement. Pressure dressing applied and the patient to go to the PACU. FINDINGS: Term male , scores of 8 and 9. Normal internal maternal anatomy. START OF SURGERY: At 8:48. BABY DELIVERED: At 8:57. SURGERY COMPLETED: At 9:35. FLUIDS: 1200 mL of LR and 300 mL Pitocin. ESTIMATED BLOOD LOSS: 750 mL. URINE OUTPUT: 20 mL clear. COMPLICATIONS: None. DISPOSITION: Mother to go to the PACU at this time, baby to go down to the nursery for further evaluation. [facility] /[id number] DEVORAH
[2020-02-11] MEDS ORDERED: Ketorolac 30 MG/ML SDV IVPUSH ONE (13:12)
[2020-02-11] MEDS: Simethicone 80 MG Tab.Chew PO SCH ×3 (13:19→21:19)
[2020-02-11] MEDS: Albuterol/Ipratropium 3.0-0.5 MG/3 ML Neb Soln NEB PRN ×2 (13:31→21:24)
[2020-02-11] MEDS: Ketorolac 30 MG/ML SDV IVPUSH SCH (19:17)
[2020-02-12] MEDS: Ketorolac 30 MG/ML SDV IVPUSH SCH ×2 (01:38→08:22)
[2020-02-12] MEDS: Lactated Ringers 1,000 ML IV SCH (06:35)
[2020-02-12] MEDS: Simethicone 80 MG Tab.Chew PO SCH ×4 (08:24→20:52)
[2020-02-12] MEDS: Ferrous Sulfate 325 MG Tab PO SCH ×2 (08:24→20:52)
[2020-02-12] MEDS: Prenatal Multivitamin with Calcium/Folic Acid/Iron Tab PO SCH (08:24)
[2020-02-12] MEDS: Albuterol/Ipratropium 3.0-0.5 MG/3 ML Neb Soln NEB PRN (08:30)
--- NOTE | 2020-02-12 08:39 | PN ---
DATE: 02/12/2020 SUBJECTIVE: Postoperative day #1, the patient has been doing well. She has been up to ambulate a little bit and up in the wheelchair to come see her baby in the nursery. Emotionally having mixed feelings at this time because her baby needs to be transferred to the NICU, and she understands the importance of that; however, she also wants very much to be with him. She is denying any chest pain or shortness of breath. She would like to have one of her DuoNeb treatments at this time, because her breathing is feeling a little bit tight. Incisional pain is starting to increase. She is not passing any gas yet. Mcmanus catheter is still in place. Bleeding has been minimal and she otherwise denies acute concerns. All of the feelings of nausea and side effects of the anesthesia and so forth have improved since yesterday. OBJECTIVE: General: Pleasant 34-year-old female, tearful at this time because she cannot have her baby with her. Vital Signs: Temperature is 98.4, pulse 72, blood pressure 116/57, and O2 saturations 98% on room air. Heart: Regular without murmur. Lungs: Clear to auscultation bilaterally. Abdomen: Mildly distended, soft. Bowel sounds normoactive in all 4 quadrants. Dressing is clean, dry, and intact. Extremities: SAIDA hose are on. No edema at this time. No tenderness. LABORATORY DATA: Hemoglobin is down to 9.7, platelets 329. Last glucose was 106. She is no longer on her insulin. ASSESSMENT: 1. Postoperative day 1 status post repeat low-transverse section. 2. 8, now para 7-0-1-7. 3. History of macrosomic x2. 4. Gestational diabetes, well controlled on insulin. 5. Anemia of . 6. Morbid obesity. 7. Penicillin allergy. 8. Hepatitis C antibody positive. 9. Late care. 10.Blood type O positive, rubella immune, and group B strep negative. 11. mother whose baby has now been transferred to the Intensive Care Nursery. PLAN: Anticipate normal postoperative cares and discharge home tomorrow as long as all continues to go well. We will get the prescriptions prepared today so that her can pick those up and they will have them for tomorrow as the pharmacies will be closed. She has plenty of iron and Colace to go home with, so we will make sure that she has her ibuprofen and Percocet. Renewed prescription for vitamins. Otherwise, her questions have been answered, and she is understanding and satisfied with the plan at this time. [facility] /[id number]
[2020-02-12] MEDS: Acetaminophen/oxyCODONE 325-5 MG Tab PO PRN ×2 (16:56→20:56)
[2020-02-12] MEDS: Ibuprofen 800 MG Tab PO PRN (16:57)
[2020-02-12] MEDS: Docusate Sodium 100 MG Cap PO PRN (16:58)
[2020-02-13] MEDS: Ibuprofen 800 MG Tab PO PRN ×2 (01:13→09:12)
[2020-02-13] MEDS: Acetaminophen/oxyCODONE 325-5 MG Tab PO PRN ×2 (05:29→09:38)
[2020-02-13] MEDS ORDERED: Mometasone Furoate Powder 220 MCG/Puff 14 Dose Inhaler INH SCH (08:40)
[2020-02-13] MEDS: Prenatal Multivitamin with Calcium/Folic Acid/Iron Tab PO SCH (09:11)
[2020-02-13] MEDS: Ferrous Sulfate 325 MG Tab PO SCH (09:13)
[2020-02-13] MEDS: Simethicone 80 MG Tab.Chew PO SCH (09:13)
[2020-02-13] MEDS: Docusate Sodium 100 MG Cap PO PRN (09:13)
[2020-02-13 11:50] VITALS: BP 138/87; PULSE 76
--- NOTE | 2020-02-13 13:01 | DISCH ---
ADMITTING DIAGNOSES: 1. Forty and 0/7 weeks' gestation based on 43-awre-3-day ultrasound. 2. 8, para 6-0-1-6. 3. Gestational diabetes controlled with insulin for the last 2 weeks of . 4. Prediabetes, A1c of 6.1. 5. History of x2. 6. History of macrosomic x2. 7. Blood type O positive, rubella immune, group B Strep negative. 8. Anemia of . 9. Morbid obesity. 10.Penicillin allergy. 11.Hepatitis C antibody positive. 12.Late care. 13.Mild intermittent asthma. DISCHARGE DIAGNOSES: 1. Forty and 0/7 weeks' gestation based on 42-aszc-1-day ultrasound. 2. 8, now para 7-0-1-7, status post repeat low transverse section without complication. 3. Gestational diabetes controlled with insulin for the last 2 weeks of . 4. Prediabetes, A1c of 6.1. 5. History of x2. 6. History of macrosomic infants x2. 7. Blood type O positive, rubella immune, group B Strep negative. 8. Anemia of . 9. Morbid obesity. 10.Penicillin allergy. 11.Hepatitis C antibody positive. 12.Late care. 13.Mild intermittent asthma. BRIEF HISTORY: A 34-year-old female brought into the hospital for elective C- section at 40 weeks' gestation because of poor dating, late ultrasound in combination with gestational diabetes and history of macrosomic made me believe that the baby was actually closer to 38 weeks based on the fact that she had had a miscarriage in April, and LMP date in May was about the earliest that she could have had. Her blood sugars were well controlled in the 2 weeks that we were able to see her and give her insulin, and glucose on admission was 89. section was carried out without difficulties. HOSPITAL COURSE: Hospital course was good. The day of surgery, she was having trouble with dizziness, not feeling well, played-out, asthma symptoms exacerbated, and then with all of these sedating medications was just overly tired. By postoperative day #1, those symptoms had resolved with exception of the persistent asthma difficulties. She has been given DuoNeb and she has access to her albuterol inhaler in the room and reports she is using it about twice a day and normally would only use her albuterol once every couple of weeks. Otherwise, denies any other significant respiratory symptoms. She has not had any chest pain. Bleeding has been well controlled. No problems with her wound. She is emotionally upset because her baby had to be sent to the Intensive Care Nursery and she very much wants to be with him. Otherwise, she is ambulating, tolerating regular diet, passing flatus, has not had a bowel movement, voiding without difficulties. No fevers, no chills. She is expressing breast milk and has no other concerns and feels ready for discharge today. DISCHARGE CONDITION: Good. PHYSICAL EXAMINATION: Vital Signs: Temperature is 98.7, pulse 77, blood pressure 139/88, respiratory rate of 20, O2 saturation is 97% on room air. Heart: Regular without murmur. Lungs: Clear to auscultation. Abdomen: Soft and nontender, less distended than yesterday. Positive bowel sounds in all 4 quadrants. NICKI dressing is clean, dry, and intact and the pump is working. Extremities: SAIDA hose are on. No tenderness, warmth to touch, or edema. LABORATORY DATA: Admission hemoglobin 10.8, discharge 9.7; platelets on discharge 329. Blood sugars have been excellent; 89, 106, 108, 103, and A1c was 6.1%, and she has not needed any additional insulin in the hospital. COVID test was negative. DISPOSITION: Home with family and traveling to the NICU to see her baby. MEDICATIONS: 1. DuoNeb can be continued at home every 4 hours as needed. 2. Albuterol inhaler 2 puffs every 4 to 6 hours as needed for acute wheezing. 3. We will start her on Asmanex 220 mcg 1 puff b.i.d. 4. Ibuprofen 800 mg every 8 hours as needed for pain. 5. Percocet 5/325, 1 to 2 tablets every 4 to 6 hours as needed for pain, dispensed 30, no refills. 6. Colace 100 mg twice daily as needed for constipation. 7. Iron 325 mg continue twice daily. 8. vitamin 1 tablet p.o. daily. FOLLOWUP: The patient will be seen on Friday or Friday of next week for wound check and to remove the NICKI dressing. Dressing can be removed and left off sooner if it has any leaks or other complications arise. INSTRUCTIONS: Routine postoperative care instructions for a post mother were provided. Additional education given about the NICKI dressing and why it is in place given her morbid obesity and anticipated travel to and from [place]. She has been advised of signs and symptoms of seroma, wound dehiscence, and wound infection, and that those need to be followed up on if any of them develop. Lifting restrictions of no more than 15 to 20 pounds and pelvic rest for 6 weeks. All of her questions have been answered. [facility] /[id number]
== END 2020-02-13 11:10 | disposition home or self-care (01) | DRG 788 ==
LOC: DL.OB 05:43 → UNDOADMOB 05:43 → DL.MS 05:43 → INTOOBSV 08:57 → OBSVTOIN 08:57
PROVIDERS: ADMIT Family Medicine; ATTEND Family Medicine
PROC: 10D00Z1 Extraction of Products of Conception, Low, Open Approach (ICD-10-PCS; principal; 2020-02-11)
PROC: 4A1HXCZ Monitoring of Products of Conception, Cardiac Rate, External Approach (ICD-10-PCS; 2020-02-11)
DX: O24.414 Gestational diabetes mellitus in pregnancy, insulin controlled (principal); O99.213 Obesity complicating pregnancy, third trimester; O34.211 Maternal care for low transverse scar from previous cesarean delivery; O09.893 Supervision of other high risk pregnancies, third trimester; O48.0 Post-term pregnancy; O24.424 Gestational diabetes mellitus in childbirth, insulin controlled; Z3A.40 40 weeks gestation of pregnancy; Z37.0 Single live birth; O99.02 Anemia complicating childbirth; D64.9 Anemia, unspecified; O99.214 Obesity complicating childbirth; E66.01 Morbid (severe) obesity due to excess calories; Z88.0 Allergy status to penicillin
CPT/HCPCS: 36415; 59025; 59409; 82962; 83036; 85018; 85025; 85027; 86803; 86850; 86900; 86901; 94640; A9270-GY; J1100; J1580; J1885; J2274; J2405; J2550; J2590; J3490; J7050; J7120; J7620-GY; U0002

== ENCOUNTER → 2021-01-23 | Emergency (ER) | payer MEDICAID | LOC: DL.ED 14:35 | DX: Z53.21 Procedure and treatment not carried out due to patient leaving prior to being seen by health care provider (principal) | CPT/HCPCS: 82962 ==

== ENCOUNTER 2021-10-14 19:06 | Emergency (ER) | payer MEDICAID ==
[2021-10-14 22:24] VITALS: BP 130/81; PULSE 87
[2021-10-14] MEDS ORDERED: Albuterol/Ipratropium 3.0-0.5 MG/3 ML Neb Soln NEB ONE (22:41)
[2021-10-14 23:23] LABS: CORONAVIRUS COVID-19 NAA NEGATIVE (NEGATIVE)
--- NOTE | 2021-10-15 00:03 | CR ---
PROCEDURE INFORMATION: Exam: XR Chest Exam date and time: 10/14/2021 11:52 PM Age: 36 years old Clinical indication: Other: Chest pain TECHNIQUE: Imaging protocol: XR of the chest. Views: 1 view. COMPARISON: No relevant prior studies available. FINDINGS: Lungs: Unremarkable. No consolidation. Pleural spaces: Unremarkable. No pleural effusion. No pneumothorax. Heart/Mediastinum: Unremarkable. No cardiomegaly. Bones/joints: Unremarkable. IMPRESSION: No acute findings.
[2021-10-15 00:06] LABS: ANION GAP 13.3 mEq/L (7-13); CHLORIDE,CL 102 mmol/L (98-107); SODIUM,NA 137 mmol/L (136-145)
[2021-10-15] MEDS ORDERED: methylPREDNISolone Sodium Succinate 125 MG/2 ML SDV IVPUSH ONE (00:23)
[2021-10-15] MEDS ORDERED: Oseltamivir 75 MG Cap PO ONE (00:23)
--- NOTE | 2021-10-15 00:30 | EDM.PDOC ---
ED HPI GENERAL MEDICAL PROBLEM - General Chief Complaint: General Stated Complaint: BURNING IN LUNGS Time Seen by Provider: 10/14/21 23:40 Source of Information: Reports: Patient, RN, RN Notes Reviewed History Limitations: Reports: No Limitations - History of Present Illness INITIAL COMMENTS - FREE TEXT/NARRATIVE: Leigh Ann is a 36 y/o female with a history of asthma who presents to the ED via personal vehicle with complaints of chest tightness and shortness of breath. The patient reports her symptoms started two days ago and have progressively worsened in that time. Additionally, she reports shaking chills, productive cough, decreased appetite, muscle aches, and two bouts of emesis. She denies vision changes, dizziness, chest pain, palpitations, nausea, abdominal pain, dysuria, hematuria, diarrhea, or constipation. She took one dose of acetaminophen yesterday, which offered her not alleviation in symptoms. She has also taken one dose of NyQuil which allowed her to rest. The patient notes her chest tightness is aggravated by deep breathing; she has attempted nebulizer treatments but notes her machine is not working correctly. She denies tobacco, alcohol, or recreational drugs. The patient states she has received full vaccination for COVID-19 however she is not vaccinated for influenza. Bilateral Chest Pain Score (Numeric/FACES): 10 - Related Data Allergies Allergy/AdvReac Type Severity Reaction Status Date / Time amoxicillin Allergy Hives Verified 10/15/21 01:44 Penicillins Allergy Hives Verified 10/15/21 01:44 Home Meds: Home Meds Albuterol [Proventil HFA] 2 puff INH Q4H PRN 07/26/16 [History] Pnv No.95/Ferrous Fum/Folic AC [ Tablet] 1 tab PO DAILY 02/10/20 [History] Albuterol/Ipratropium [DuoNeb 3.0-0.5 MG/3 ML] 3 ml NEB Q4HRRT PRN neb 02/13/20 [Rx] Ferrous Sulfate 325 mg PO BID #60 tablet 02/13/20 [Rx] Insulin Aspart [NovoLOG] 5 units SUBCUT BID 01/16/21 [History] Insulin NPH/Insulin Reg,Human [Novolin 70-30] 15 units SUBCUT BID 01/16/21 [History] Past Medical History HEENT History: Reports: Impaired Vision Cardiovascular History: Reports: Blood Clots/VTE/DVT Other Cardiovascular History: To left hip following first delivery in 2001 Respiratory History: Reports: Asthma Gastrointestinal History: Reports: Cholelithiasis, Other (See Below) Other Gastrointestinal History: increased LFT's Genitourinary History: Reports: UTI, Recurrent BINDING DYER History: Reports: Other BINDING DYER History: hx yeast infection, bv Musculoskeletal History: Reports: None Neurological History: Reports: None Psychiatric History: Reports: Depression Endocrine/Metabolic History: Reports: None Hematologic History: Reports: Anemia, Other (See Below) Other Hematologic History: + hep c Immunologic History: Reports: None Oncologic (Cancer) History: Reports: None Dermatologic History: Reports: None - Infectious Disease History Infectious Disease History: Reports: Hepatitis C - Past Surgical History Head Surgeries/Procedures: Reports: None Cardiovascular Surgical History: Reports: None GI Surgical History: Reports: None Female Surgical History: Reports: Section Social & Family History - Family History Family Medical History: No Pertinent Family History Respiratory: Reports: Asthma Endocrine/Metabolic: Reports: Diabetes, type II - Tobacco Use Tobacco Use Status *Q: Former Tobacco User Used Tobacco, but Quit: Yes Month/Year Tobacco Last Used: 10/2014 - Caffeine Use Caffeine Use: Reports: Coffee - Recreational Drug Use Recreational Drug Use: No - Living Situation & Occupation Living situation: Reports: with Family Occupation: Employed ED ROS GENERAL - Review of Systems Review Of Systems: Comprehensive ROS is negative, except as noted in HPI. ED EXAM, GENERAL - Physical Exam Exam: See Below Exam Limited By: No Limitations General Appearance: Alert, Mild Distress (Chest tightness, Tachypnea), Obese Eye Exam: Right Eye: Proptosis, Bilateral Eye: EOMI, Normal Inspection, PERRL (3mm) Ears: Normal External Exam, Hearing Grossly Normal Ear Exam: Bilateral Ear: Auricle Normal, Canal Normal, TM normal Nose: Normal Inspection, Normal Mucosa, No Blood Throat/Mouth: Normal Inspection, Normal Oropharynx, Normal Voice, No Airway Compromise Head: Atraumatic, Normocephalic Neck: Normal Inspection, Supple, Non-Tender, Full Range of Motion. No: Lymphadenopathy (L), Lymphadenopathy (R) Respiratory/Chest: No Respiratory Distress, No Accessory Muscle Use, Wheezing (To bilateral upper lobes), Other (Tachypnea). No: Chest Non-Tender (With deep inspiration, no pain to palpation), Crackles, Rales, Rhonchi, Stridor Cardiovascular: Normal Peripheral Pulses, Regular Rate, Rhythm, No Edema, No Gallop, No JVD, No Murmur, No Rub Peripheral Pulses: 2+: Radial (L), Radial (R) GI/Abdominal: Normal Bowel Sounds, Soft, Non-Tender, No Abnormal Bruit, No Mass, Pelvis Stable (Female) Exam: Deferred Rectal (Female) Exam: Deferred Back Exam: Normal Inspection, Full Range of Motion Extremities: Normal Inspection, Normal Range of Motion, Non-Tender, No Pedal Edema, Normal Capillary Refill Neurological: Alert, Oriented, CN II-XII Intact, Normal Cognition, Normal Gait, No Motor/Sensory Deficits Psychiatric: Normal Affect, Normal Mood Skin Exam: Warm, Dry, Intact, Normal Color, No Rash. No: Cyanosis, Jaundice, Mottled, Pallor Lymphatic: No Adenopathy Course - Vital Signs Last Recorded V/S: Last Vital Signs Temp 98.4 F 10/14/21 22:17 Pulse 87 10/14/21 22:17 Resp 20 10/14/21 22:17 BP 130/81 10/14/21 22:17 Pulse Ox 96 10/14/21 22:17 - Orders/Labs/Meds Orders: Active Orders 24 hr Category Date Time Status RT Aerosol Therapy [RC] ASDIRECTED Care 10/14/21 22:41 Active Labs: Laboratory Tests 10/14/21 10/14/21 10/14/21 Range/Units 22:32 23:35 23:35 WBC 4.6 L (5.0-10.0) 10^3/uL RBC 4.89 (4.2-5.4) 10^6/uL Hgb 13.3 D (12.0-16.0) g/dL Hct 40.8 (37.0-47.0) % MCV 83.4 D (80-100) fL MCH 27.2 (27.0-34.0) pg MCHC 32.6 L (33.0-35.0) g/dL Plt Count 286 (150-450) 10^3/uL Neut % (Auto) 60.1 (42.2-75.2) % Lymph % (Auto) 22.5 (20.5-50.1) % [place] % (Auto) 13.1 H (2-8) % Eos % (Auto) 4.1 H (1.0-3.0) % Baso % (Auto) 0.2 (0.0-1.0) % Sodium 137 (136-145) mmol/L Potassium 4.3 (3.5-5.1) mmol/L Chloride 102 (98-107) mmol/L Carbon Dioxide 26 (21-32) mmol/L Anion Gap 13.3 H (7-13) mEq/L BUN 8 (7-18) mg/dL Creatinine 0.69 (0.55-1.02) mg/dL Est Cr Clr Drug Dosing 105.52 mL/min Estimated GFR (MDRD) > 60 BUN/Creatinine Ratio 11.6 (No establ ref range) Glucose 116 H (70-99) mg/dL Lactic Acid (0.4-2.0) mmol/L Calcium 8.8 (8.5-10.1) mg/dL Total Bilirubin 0.4 (0.2-1.0) mg/dL AST 69 H (15-37) U/L ALT 111 H (14-59) U/L Alkaline Phosphatase 171 H (46-116) U/L Troponin I High Sens 5 (<=51) pg/mL C-Reactive Protein 8.0 H (0.0-0.9) mg/dL Total Protein 8.7 H (6.4-8.2) g/dL Albumin 3.7 (3.4-5.0) g/dL Globulin 5.0 Albumin/Globulin Ratio 0.7 Amylase 42 (25-115) U/L Lipase 42 L (73-393) U/L Influenza Type A RNA Positive H (NEGATIVE) Influenza Type B RNA Negative (NEGATIVE) SARS-CoV-2 RNA ([place]) Negative (NEGATIVE) 10/14/21 Range/Units 23:35 WBC (5.0-10.0) 10^3/uL RBC (4.2-5.4) 10^6/uL Hgb (12.0-16.0) g/dL Hct (37.0-47.0) % MCV (80-100) fL MCH (27.0-34.0) pg MCHC (33.0-35.0) g/dL Plt Count (150-450) 10^3/uL Neut % (Auto) (42.2-75.2) % Lymph % (Auto) (20.5-50.1) % [place] % (Auto) (2-8) % Eos % (Auto) (1.0-3.0) % Baso % (Auto) (0.0-1.0) % Sodium (136-145) mmol/L Potassium (3.5-5.1) mmol/L Chloride (98-107) mmol/L Carbon Dioxide (21-32) mmol/L Anion Gap (7-13) mEq/L BUN (7-18) mg/dL Creatinine (0.55-1.02) mg/dL Est Cr Clr Drug Dosing mL/min Estimated GFR (MDRD) BUN/Creatinine Ratio (No establ ref range) Glucose (70-99) mg/dL Lactic Acid 1.1 (0.4-2.0) mmol/L Calcium (8.5-10.1) mg/dL Total Bilirubin (0.2-1.0) mg/dL AST (15-37) U/L ALT (14-59) U/L Alkaline Phosphatase (46-116) U/L Troponin I High Sens (<=51) pg/mL C-Reactive Protein (0.0-0.9) mg/dL Total Protein (6.4-8.2) g/dL Albumin (3.4-5.0) g/dL Globulin Albumin/Globulin Ratio Amylase (25-115) U/L Lipase (73-393) U/L Influenza Type A RNA (NEGATIVE) Influenza Type B RNA (NEGATIVE) SARS-CoV-2 RNA ([place]) (NEGATIVE) Meds: Medications Discontinued Medications Generic Name Dose Route Start Last Admin Trade Name Freq PRN Reason Stop Dose Admin Albuterol/Ipratropium 3 ml 10/14/21 22:41 10/14/21 23:40 Albuterol/Ipratropium 3.0-0.5 Mg/3 Ml Neb Soln NEB 10/14/21 22:42 3 ml ONETIME ONE Administration Methylprednisolone Sodium Succinate 125 mg 10/15/21 00:23 10/15/21 01:00 Methylprednisolone Sodium Succinate 125 Mg/2 Ml Sdv IVPUSH 10/15/21 00:24 125 mg ONETIME ONE Administration Oseltamivir Phosphate 75 mg 10/15/21 00:23 10/15/21 01:03 Oseltamivir 75 Mg Cap PO 10/15/21 00:24 75 mg ONETIME ONE Administration - Radiology Interpretation Free Text/Narrative:: [facility] [place] [facility] Final Radiology Report Call: [phone] assistance Online chat: [email or web address] Name: LEIGH ANN PAULSON Age: 36Years F Date: 10/14/2021 SSN: -- : [id number] Study: CR CHEST 1V FRONTAL Requesting Physician: Stella Carvajal Images: 1 Addl Studies: Provided Clinical History: Chest pain Contrast: Contrast Medium: Contrast Amount: Contrast Method: CONFIDENTIALITY STATEMENT This report is intended only for use by the referring physician, and only in accordance with law. If you received this in error, call [phone]. Page 1 of 1 PROCEDURE INFORMATION: Exam: XR Chest Exam date and time: 10/14/2021 11:52 PM Age: 36 years old Clinical indication: Other: Chest pain TECHNIQUE: Imaging protocol: XR of the chest. Views: 1 view. COMPARISON: No relevant prior studies available. FINDINGS: Lungs: Unremarkable. No consolidation. Pleural spaces: Unremarkable. No pleural effusion. No pneumothorax. Heart/Mediastinum: Unremarkable. No cardiomegaly. Bones/joints: Unremarkable. IMPRESSION: No acute findings. Thank you for allowing us to participate in the care of your patient. Dictated and Authenticated by: Donovan Clayton MD 10/15/2021 12:03 AM Central Time ([place] & [place]) - Re-Assessments/Exams Free Text/Narrative Re-Assessment/Exam: 10/14/20 CXR obtained while labs pending. DuoNeb administered. Solu-Medrl 125mg IVP and Tamiflu 75mg PO administered. Patient verbalized mild improvement in breathing following neb. Findings of examination, lab work, and imaging reviewed with patient. Will treat Influenza A with TamiFlu; Pleurisy with prednisone; and provide albuterol nebs for SOB. Supportive cares discussed. Patient instructed to follow up with primary care provider in 5-7 days regarding todays visit. Red flag signs and symptoms which would warrant immediate reevaluation reviewed. Patient verbalized understanding and agreement with the plan of care. Departure - Departure Time of Disposition: 01:40 Disposition: Home, Self-Care 01 Condition: Fair Clinical Impression: Influenza A, Elevated liver enzymes, Pleurisy with influenza Asthma Qualifiers: Asthma severity: mild Asthma persistence: intermittent Asthma complication type: uncomplicated Qualified Code(s): J45.20 - Mild intermittent asthma, uncomplicated - Discharge Information *PRESCRIPTION DRUG MONITORING PROGRAM REVIEWED*: Not Applicable *COPY OF PRESCRIPTION DRUG MONITORING REPORT IN PATIENT MATT: Not Applicable Instructions: Asthma, Adult, Influenza, Adult, Pleurisy, [id number] Referrals: PCP,None [Primary Care Provider] - Forms: ED Department Discharge Additional Instructions: Rx: Tamiflu 75mg (#9) Rx: prednisone 20mg (#5) Rx: albuterol neb solution 0.083% (#1 box) Rx: nebulizer machine and supplies 1.) Start your medications tomorrow morning and continue, as prescribed, until all pills are gone; even as symptoms improve. 2.) You may take ibuprofen (Advil/Motrin) 400-600mg every six hours, as fever and muscle aches persist. You may also take acetaminophen (Tylenol) 650-1000mg every six hours, as pain persists. You may stagger these medications so you are taking a dose of either every three hours. 3.) Drink small frequent sips of fluids to stay hydrated. 4.) Eat a bland, easily digestible diet. 5.) Follow up with your primary care provider in 5-7 days regarding today's visit. Should your symptoms worsen despite medications, follow up with your primary care provider sooner or return to the emergency department. Sepsis Event Note (ED) - Evaluation Sepsis Screening Result: No Definite Risk - Focused Exam Vital Signs: Vital Signs Temp Pulse Resp BP Pulse Ox 10/14/21 22:17 98.4 F 87 20 130/81 96 - My Orders Last 24 Hours: My Active Orders 10/14/21 22:41 RT Aerosol Therapy [RC] ASDIRECTED - Assessment/Plan Last 24 Hours: My Active Orders 10/14/21 22:41 RT Aerosol Therapy [RC] ASDIRECTED
== END 2021-10-15 01:40 | disposition home or self-care (01) ==
LOC: DL.ED 19:06
DX: J45.20 Mild intermittent asthma, uncomplicated (principal); J10.1 Influenza due to other identified influenza virus with other respiratory manifestations; R74.8 Abnormal levels of other serum enzymes; R09.1 Pleurisy; D64.9 Anemia, unspecified; Z87.891 Personal history of nicotine dependence; Z88.0 Allergy status to penicillin; Z79.899 Other long term (current) drug therapy; Z20.822 Contact with and (suspected) exposure to COVID-19
CPT/HCPCS: 0240U; 36415; 71045; 80053; 82150; 83605; 83690; 84484; 85025; 86140; 94640; 96374; 99285; A9270; J2930; J7620-GY

== ENCOUNTER 2022-01-12 11:35 | Emergency (ER) | payer MEDICAID ==
[2022-01-12 12:30] VITALS: BP 120/80; PULSE 76
[2022-01-12 12:57] LABS: CORONAVIRUS COVID-19 NAA NEGATIVE (NEGATIVE); RESPIRATORY SYNCYTIAL VIR NAA NEGATIVE (NEGATIVE)
[2022-01-12] MEDS ORDERED: Loratadine 10 MG Tab PO ONE (13:43)
[2022-01-12] MEDS ORDERED: Albuterol 6.7 GM Inhaler INH ONE (13:43)
== END 2022-01-12 13:58 | disposition home or self-care (01) ==
LOC: DL.ED 11:35
DX: J45.41 Moderate persistent asthma with (acute) exacerbation (principal); J06.9 Acute upper respiratory infection, unspecified; Z20.822 Contact with and (suspected) exposure to COVID-19; Z86.16 Personal history of COVID-19; Z88.0 Allergy status to penicillin
CPT/HCPCS: 0241U; 87081; 87430; 99283; 99284; A9270-GY

== ENCOUNTER 2022-06-18 22:46 | Emergency (ER) | payer MEDICAID ==
[2022-06-18] MEDS ORDERED: Albuterol 0.083% 2.5 MG/3 ML Neb Soln INH ONE (22:47)
[2022-06-18 23:05] VITALS: PULSE 86
[2022-06-18 23:17] VITALS: BP 155/65
[2022-06-18 23:41] LABS: CORONAVIRUS COVID-19 NAA NEGATIVE (NEGATIVE)
[2022-06-19] MEDS ORDERED: Albuterol/Ipratropium 3.0-0.5 MG/3 ML Neb Soln NEB ONE (00:06)
[2022-06-19] MEDS ORDERED: methylPREDNISolone Sodium Succinate 125 MG/2 ML SDV IM ONE (00:44)
[2022-06-19] MEDS ORDERED: Albuterol/Ipratropium 3.0-0.5 MG/3 ML Neb Soln ONE (01:03)
[2022-06-20 08:06] LABS: BORDETELLA PARAPERT IS1001 Not Detected (Not Detected)
== END 2022-06-19 01:04 | disposition home or self-care (01) ==
LOC: DL.ED 22:46
DX: J45.909 Unspecified asthma, uncomplicated (principal); Z88.0 Allergy status to penicillin; Z79.4 Long term (current) use of insulin; Z20.822 Contact with and (suspected) exposure to COVID-19
CPT/HCPCS: 0240U; 36415; 71046; 80053; 83605; 85025; 87040; 87081; 87430; 87486; 87581; 87633; 87798; 94640; 96372; 99284; 99285; J2930; J7613-GY; J7620-GY

== ENCOUNTER 2022-07-14 14:21 | Emergency (ER) | payer MEDICAID ==
[2022-07-14 15:42] VITALS: BP 139/95; PULSE 73
== END 2022-07-14 16:00 | disposition home or self-care (01) ==
LOC: DL.ED 14:21
DX: S80.01XA Contusion of right knee, initial encounter (principal); Z88.0 Allergy status to penicillin; Z79.4 Long term (current) use of insulin; W01.0XXA Fall on same level from slipping, tripping and stumbling without subsequent striking against object, initial encounter
CPT/HCPCS: 73562-RT; 99283

== ENCOUNTER 2023-12-07 15:13 | Emergency (ER) | payer MEDICAID ==
[2023-12-07] MEDS: Metoclopramide 10 MG/2 ML SDV IVPUSH ONE (15:56)
[2023-12-07] MEDS: Sodium Chloride 0.9% 10 ML Syringe FLUSH PRN (15:56)
[2023-12-07] MEDS: Sodium Chloride 0.9% 1,000 ML IV ONE (15:56)
[2023-12-07] MEDS: Ketorolac 30 MG/ML SDV IVPUSH ONE (16:24)
[2023-12-07] MEDS: Acetaminophen 500 MG Tab PO ONE (16:24)
[2023-12-07 16:57] VITALS: BP 134/82; PULSE 80
== END 2023-12-07 16:53 | disposition home or self-care (01) ==
LOC: DL.ED 15:13
DX: G43.909 Migraine, unspecified, not intractable, without status migrainosus (principal); Z88.0 Allergy status to penicillin; Z79.4 Long term (current) use of insulin; Z79.899 Other long term (current) drug therapy
CPT/HCPCS: 70450; 96361; 96374; 96375; 99284; A9270; J1885; J2765; J7030; J3490

== ENCOUNTER 2025-06-24 15:19 | Emergency (ER) | payer BC, MEDICAID ==
[2025-06-24] MEDS: Lidocaine 1% with EPINEPHrine 1:100,000 20 ML MDV INJECT ONE (15:47)
[2025-06-24 16:29] VITALS: BP 199/78; PULSE 74
== END 2025-06-24 16:41 | disposition home or self-care (01) ==
LOC: DL.ED 15:19
DX: N75.1 Abscess of Bartholin's gland (principal); J45.909 Unspecified asthma, uncomplicated; E11.9 Type 2 diabetes mellitus without complications; Z88.0 Allergy status to penicillin; Z79.51 Long term (current) use of inhaled steroids; Z79.4 Long term (current) use of insulin
CPT/HCPCS: 56420; 87070; 99283; J2004

== ENCOUNTER 2025-07-21 11:39 | Emergency (ER) | payer BC, OTHER ==
[2025-07-21] MEDS ORDERED: Sodium Chloride 0.9% 10 ML Syringe FLUSH PRN ×2 (12:07)
[2025-07-21 12:13] LABS: BASOPHILS PERCENT AUTO 0.2 % (0.0-1.0); EOSINOPHILS PERCENT AUTO 9.6 % (1.0-3.0); LYMPHOCYTES PERCENT AUTO 18.5 % (20.5-50.1); MONOCYTES PERCENT AUTO 6.5 % (2-8); NEUTROPHILS PERCENT AUTO 65.2 % (42.2-75.2); PLATELET COUNT,PLT 341 10^3/uL (150-450); RED BLOOD CELL COUNT 4.46 10^6/uL (4.2-5.4); WHITE BLOOD CELL COUNT,WBC 9.3 10^3/uL (5.0-10.0)
[2025-07-21 12:22] LABS: INR 1.0 (0.9-1.2)
[2025-07-21] MEDS: Ketorolac 30 MG/ML SDV IVPUSH ONE (12:25)
[2025-07-21 12:27] LABS: A/G RATIO 0.9; ALANINE AMINOTRANSFERASE,ALT 60 U/L (14-59); ASPARTATE AMNIOTRANSFERASE,AST 32 U/L (15-37); BILIRUBIN TOTAL 0.8 mg/dL (0.2-1.0); BLOOD UREA NITROGEN,BUN 10 mg/dL (7-18); CARBON DIOXIDE,CO2 27 mmol/L (21-32); CHLORIDE,CL 104 mmol/L (98-107); CREATININE 0.61 mg/dL (0.55-1.02); GLUCOSE RANDOM 106 mg/dL (70-99); POTASSIUM,K 4.0 mmol/L (3.5-5.1); PROTEIN TOTAL,TP 7.5 g/dL (6.4-8.2); SODIUM,NA 139 mmol/L (136-145)
[2025-07-21 12:31] LABS: ESTIMATED GFR 117 mL/min (>=60)
[2025-07-21 14:47] VITALS: BP 113/70; PULSE 72
== END 2025-07-21 14:45 | disposition home or self-care (01) ==
LOC: DL.ED 11:39
DX: R07.89 Other chest pain (principal); E11.9 Type 2 diabetes mellitus without complications; F17.210 Nicotine dependence, cigarettes, uncomplicated; Z88.0 Allergy status to penicillin; Z79.899 Other long term (current) drug therapy; Z79.4 Long term (current) use of insulin
CPT/HCPCS: 36415; 71045; 80053; 84484; 85025; 85610; 93005; 96374; 99285; J1885; 93010; 99283